=== PATIENT | female | born 1945 | race Caucasian/White ===

== ENCOUNTER → 2018-04-08 | Outpatient (CLI) | payer OTHER ==
[2018-04-08 14:20] LABS: BLOOD UREA NITROGEN 18 mg/dl (7-18); CALCIUM 8.6 mg/dl (8.5-10.1); CARBON DIOXIDE 25 mmol/L (21-32); CREATININE 0.68 mg/dl (0.60-1.20); GLUCOSE 96 mg/dl (70-99); POTASSIUM 3.9 mmol/L (3.5-5.1); SODIUM 143 mmol/L (136-145)
== END | disposition home or self-care (01) ==
LOC: C.LABMFLN 08:13
PROVIDERS: ATTEND Family Medicine
DX: E03.9 Hypothyroidism, unspecified (principal); M19.90 Unspecified osteoarthritis, unspecified site

== ENCOUNTER → 2018-05-10 | Outpatient (CLI) | payer OTHER | END | disposition home or self-care (01) | LOC: C.LABMFLN 09:11 | PROVIDERS: ATTEND Family Medicine | DX: E03.9 Hypothyroidism, unspecified (principal) ==

== ENCOUNTER 2019-03-07 16:04 | Inpatient (IN) ==
[2019-03-07 17:15] LABS: Partial Thromboplastin Time 26.6 Seconds (21.0-31.0); Prothrombin Time 10.5 Seconds (9.0-12.0)
[2019-03-07] MEDS ORDERED: OPTIRAY 320 125ml IV PRN (17:18)
--- NOTE | 2019-03-07 17:38 | CT Scan Report ---
CT ANGIOGRAPHY THE CHEST WITHOUT AND WITH CONTRAST CLINICAL HISTORY: Atypical chest pain, possible aortic dissection. COMPARISON STUDY: No previous studies for comparison. TECHNIQUE: Following the IV administration of 120 mL of Optiray-320, CT of the thorax was performed from the thoracic inlet to the lung bases. Images are reviewed in the axial, sagittal, and coronal pl anes. IV contrast was administered without complication. A dose lowering technique was utilized adhe ring to the principles of ALARA. MIP images were acquired. CT DOSE: 743.35 mGy.cm FINDINGS: Unenhanced images were initially obtained through the thorax. There is no evidence of acute aortic he matoma. Thyroid: Imaged portions of the thyroid gland are normal in appearance. Thoracic aorta: There is a left aortic arch with an aberrant right subclavian artery. There is no meng dence of thoracic aortic aneurysm. There is no evidence for thoracic aortic dissection. Pulmonary vasculature: The pulmonary trunk is normal in caliber. There are no central filling defects identified to suggest pulmonary embolus. Note that this examination was not protocoled for the evalu ation of pulmonary emboli. HEART: The heart is at the upper limits of normal in size. There is no significant pericardial effusi on. Lungs and pleural spaces: There is a 13 mm left lower lobe lung cyst. There is a partially solid and groundglass 6 mm left apical pulmonary nodule. There is no focal pulmonary consolidation. Mediastinum: There is no evidence for mediastinal lymphadenopathy. There is a small hiatal hernia. Ananya: There is no evidence of pathologic hilar lymphadenopathy. Axilla: There is no evidence of pathologic axillary lymphadenopathy. Upper abdomen: There is a 12 mm benign-appearing eggshell calcification located superior to the righ t kidney. Skeletal structures: There are no lytic or blastic osseous lesions. IMPRESSION: 1. No evidence of thoracic aortic aneurysm or dissection 2. No evidence of acute pulmonary embolism 3. 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 No evidence of focal pulmonary consolidation 5. 6 mm mixed solid and groundglass apical pulmonary nodule. A 3-6 month follow-up CT scan is recomme nded per Fleischner criteria Please refer to below summary of Fleischner criteria recommendations for follow-up of incidental CT n cory Higgins, Guidelines for management of small pulmonary nodules detected on CT scans: A sta tement from the Fleischner Society, Radiology 237: [id number].) SOLID NODULES Solitary nodule size: <6 mm * low risk patients: no follow-up needed * high risk patients: optional CT at 12 months Solitary nodule size: 6-8 mm * low risk patients: follow-up at 6-12 months, then consider further follow-up at 18-24 months * high risk patients: initial follow-up CT at 6-12 months and then at 18-24 months if no change Solitary nodule size: >8 mm * either low or high risk patients - consider follow-up CT at 3 months, and/or CT-PET, and/or biopsy Multiple nodules size: <6 mm * low risk patients: no routine follow-up * high risk patients: optional CT at 12 months Multiple nodules size: 6-8 mm * low risk patients: follow-up at 3-6 months, then consider further follow-up at 18-24 months * high risk patients: follow-up at 3-6 months, then at 18-24 months if no change Multiple nodules size: >8 mm * low risk patients: follow-up at 3-6 months, then consider further follow-up at 18-24 months * high risk patients: follow-up at 3-6 months, then at 18-24 months if no change Note: newly detected indeterminate nodule in persons 35 years of age or older. * low risk patients: minimal or absent history of smoking and/or other known risk factors * high risk patients: history of smoking or of other known risk factors (e.g. first degree relative with lung cancer, or exposure to asbestos, radon, uranium) * if a nodule up to 8 mm is partly solid or is ground glass further follow-up is required after 24 m onths to exclude possible slow growing adenocarcinoma (SAAD) SUBSOLID NODULES Solitary pure ground-glass nodule * nodule size <6 mm - no CT follow-up required * nodule size >=6 mm - follow-up CT at 6-12 months, then every 2 years until 5 years Solitary part-solid nodule * nodule size <6 mm - no CT follow-up required * nodule size >=6 mm - follow-up CT at 3-6 months. If unchanged, and solid component remains <6 mm, then annual follow-up for 5 years Multiple subsolid nodules * nodule size <6 mm - follow-up CT at 3-6 months, consider further follow-up at 2 and 4 years if sta ble * nodule size >=6 mm - follow-up CT at 3-6 months, subsequent management based on the most suspiciou s nodule(s) Electronically signed by: Casimiro Bernal M.D. 03/07/2019 5:35 PM
[2019-03-07] MEDS ORDERED: ASPIRIN CHEW 324 MG PO STA (17:54)
--- NOTE | 2019-03-07 18:19 | History & Physical Report ---
Date of Service March 07, 2019 Assessment & Plan (1) Exertional angina: - Admit to tele for observation for r/o - Trend cardiac biomarkers, initially was slightly elevated at 0.128 and then repeat was 0.117. Next draw at 2230. - EKG reviewed as above. - Check 2 D echo - If negative enzymes can consider a stress test tomorrow morning. - PT/OT consulted - Consult cardiology - Dr. De La O (2) PVC (premature ventricular contraction): -History of such, followed with cardiology, Dr. Martinez as an outpatient (3) HTN (hypertension): - Will treat transient htn with hydralazine for now with parameters. - pt reports not using outpt antihypertensives but was prescribed metoprolol succinate 25 mg to start this evening. She has not yet picked it up from the pharmacy. Give initial dose starting now. 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 (6) Lumbar disc disease: - stable (7) Left shoulder pain: - S/p Left shoulder surgery which was at the end of Oct 2018. - Currently going to PT/OT as outpatient (8) Arthritis: -Using etodolac 400 mg BID (9) H/O shoulder surgery: (10) DVT prophylaxis: - teds, heparin subq History of Present Illness Primary Care Provider: Srinivas Monroe DO This is a 73-year-old female with past medical history of HTN, HLD, factor V Leiden carrier, PVCs, hypothyroidism, arthritis and lumbar disc disease who presents with exertional angina over the past 2 weeks. Patient was in seeing her family physician for routine scheduled appointment. She was sent to the ER due to history of symptoms. She notes that upon walking only a few steps on incline she develops a substernal chest pain which radiates to her shoulder blades. At one point she thought that this was indigestion, used antacids however felt no relief. She denies any lightheadedness, headache, palpitation, flutter, or shortness of breath during the episodes. Pain is relieved by sitting still for several minutes periods, and bending over forward intensifies her pain. She does not routinely exercise. Troponin is mildly elevated upon initial presentation in the ER, second set was slightly lower. Will trend EKG appears without signs of ischemia or ST wave changes Allergies Allergy/AdvReac Type Severity Reaction Status Date / Time hydromorphone [From Dilaudid] Allergy Severe SWELLING Verified 03/07/19 19:02 OF FEET acetaminophen [From Percocet] Allergy Unknown Verified 03/07/19 19:02 amoxicillin [From Amoxil] Allergy Unknown Verified 03/07/19 19:02 oxycodone [From Percocet] Allergy Unknown Verified 03/07/19 19:02 Home Medications Home Medications Medication Instructions Recorded Confirmed Type cholecalciferol (vitamin D3) 1,000 1,000 units PO DAILY #90 tab 03/05/19 03/07/19 Rx unit tablet etodolac 400 mg tablet 400 mg PO BID #180 tab 03/05/19 03/07/19 Rx levothyroxine 75 mcg tablet 75 mcg PO DAILY #90 tab 03/05/19 03/07/19 Rx vitamin B complex tablet 1 tab PO DAILY #90 tab 03/05/19 03/07/19 Rx aspirin 81 mg PO QPM 03/07/19 03/07/19 History [id number] 1 cap PO HS 03/07/19 03/07/19 History [krill oil] metoprolol succinate ER 25 mg 25 mg PO DAILY #90 tab 03/07/19 03/07/19 Rx tablet,extended release 24 hr omeprazole 40 mg capsule,delayed 40 mg PO DAILY 03/07/19 03/07/19 History release Past Med/Surg History Medical History PVC (premature ventricular contraction) (Acute) Medicare annual wellness visit, initial (Acute) Lumbar disc disease (Acute) Left shoulder pain (Acute) Hypothyroidism (Acute) Factor V deficiency (Acute) Arthritis (Acute) Abnormal ECG (Acute) Surgical History H/O shoulder surgery Family History Son Myocardial infarction Hypertension Social History marital status: Current Living Situation: Spouse current occupational status: retired current occupation: [employer] Feels Safe at Home: Yes Smoking Status: Never smoker Hx Alcohol Use: No Review of Systems Review of Systems: Constitutional: No fever, sweats or chills Eyes: No diplopia, no worsening or blurred vision ENT: normal hearing, no trouble swallowing Respiratory: No cough, sputum, dyspnea at rest or on exertion Cardiovascular: As per HPI, no current chest pain, palpitations or flutter. Abdomen: No pain, nausea, vomiting, diarrhea or constipation Musculoskeletal: No joint pain, calf pain, swelling Neurologic: No weakness, numbness/tingling, or balance problems Psychiatric: No anxiety or depression Skin: No rash or itch Physical Exam Physical Exam: General: awake, alert, no apparent distress Head: Normocephalic, atraumatic ENT: PERRL, EOMI, no pharyngeal exudate, mucous membranes moist Chest: Nontender to palpation, clear to auscultation, on room air, no adventitious breath sounds Cardiac: Regular rate and rhythm, no murmur, no JVD, normal peripheral pulses, good capillary refill Abdominal: NABS x 4 quadrants, soft, nontender to palpation, no rebound, guarding or tenderness Extremities: Normal inspection, no peripheral edema or erythema, calfs nontender to palpation Psych: Normal mood and affect Neuro: AAO x 3, strength intact bilaterally and related 5/5, no motor deficits, speech is clear, no peripheral sensory deficits Skin: no rash or erythema Results & Data Vital Signs (Past 12 Hours) Vital Signs Temp Pulse Pulse Resp BP BP Pulse Ox 03/07/19 18:02 79 20 166/96 H 93 03/07/19 16:18 91 H 22 189/104 H 94 03/07/19 16:08 36.8 C 112 H 18 176/[address] ANGIOGRAPHY THE CHEST WITHOUT AND WITH CONTRAST CLINICAL HISTORY: Atypical chest pain, possible aortic dissection. COMPARISON STUDY: No previous studies for comparison. TECHNIQUE: Following the IV administration of 120 mL of Optiray-320, CT of the thorax was performed from the thoracic inlet to the lung bases. Images are reviewed in the axial, sagittal, and coronal planes. IV contrast was administered without complication. A dose lowering technique was utilized adhering to the principles of ALARA. MIP images were acquired. CT DOSE: 743.35 mGy.cm FINDINGS: Unenhanced images were initially obtained through the thorax. There is no evidence of acute aortic hematoma. Thyroid: Imaged portions of the thyroid gland are normal in appearance. Thoracic aorta: There is a left aortic arch with an aberrant right subclavian ar brandon. There is no evidence of thoracic aortic aneurysm. There is no evidence for thoracic aortic dissection. Pulmonary vasculature: The pulmonary trunk is normal in caliber. There are no central filling defects identified to suggest pulmonary embolus. Note that this examination was not protocoled for the evaluation of pulmonary emboli. HEART: The heart is at the upper limits of normal in size. There is no significant pericardial effusion. Lungs and pleural spaces: There is a 13 mm left lower lobe lung cyst. There is a partially solid and groundglass 6 mm left apical pulmonary nodule. There is no focal pulmonary consolidation. Mediastinum: There is no evidence for mediastinal lymphadenopathy. There is a small hiatal hernia. Ananya: There is no evidence of pathologic hilar lymphadenopathy. Axilla: There is no evidence of pathologic axillary lymphadenopathy. Upper abdomen: There is a 12 mm benign-appearing eggshell calcification located superior to the right kidney. Skeletal structures: There are no lytic or blastic osseous lesions. IMPRESSION: 1. No evidence of thoracic aortic aneurysm or dissection 2. No evidence of acute pulmonary embolism 3. 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 No evidence of focal pulmonary consolidation 5. 6 mm mixed solid and groundglass apical pulmonary nodule. A 3-6 month follow- up CT scan is recommended per Fleischner criteria Code Status & VTE Plan Code Status Full code-discussed with the patient's and family at bedside. Supervising Physician Co-Signing Physician Notes The patient was seen and examined by me and I agree with the assessment and plan done by Larisa Aleman PA-C. She has symptoms of exertional angina that radiate to the arms and resolves with rest. Troponin is minimally elevated. EKG reveals subtle ST segment depression in leads I and aVL. She will be started on metoprolol now and topical nitrates applied. She has had aspirin administered already. Cardiac echo is pending and cardiology consultation has been requested. She is a candidate for either stress testing prior to discharge or cardiac catheterization. Lungs are clear. Heart rhythm is regular with normal S1 and S2. Abdomen benign with normal bowel sounds. Extremities reveal no peripheral edema. Neurologically intact PG Care Time/CCT Total # of Minutes Spent Total Time Spent with Patient: Total time spent is greater than 50% in coordination of care (as documented) at patient's floor/unit and/or counseling patient:
[2019-03-07] MEDS ORDERED: ONDANSETRON INJ 2 MG/ML 2 ML VIAL IV PRN (18:20)
[2019-03-07] MEDS ORDERED: METOPROLOL TARTRATE 1 MG/ML VIAL IV STA (19:08)
[2019-03-07] MEDS: NITROGLYCERIN 2% OINTMENT 30GM TUBE EXT SCH (19:23)
[2019-03-07] MEDS ORDERED: METOPROLOL SUCC 25MG EXT REL TAB PO STA (20:43)
[2019-03-07] MEDS ORDERED: HydrALAZINE HCL 20 MG/ML VIAL IV PRN (20:43)
[2019-03-07] MEDS: HEPARIN SOD 5,000 UNIT/0.5 ML VIAL SQ SCH (21:24)
--- NOTE | 2019-03-07 22:41 | Emergency Department Note ---
Entered by Ananya Boss acting as a scribe for Ruperto Donis MD History of Present Illness General Chief complaint: Cardiac Assessment Stated complaint: ABNORMAL LABS- CARDIAC HX Time Seen by Provider: 03/07/19 16:19 Source: patient History of Present Illness Provider complaint: cardiac assessment Onset (ago): day(s) 2 Location: chest Pain Consistency: + other (episode) Maximum Pain Intensity: 4 Quality: + sharp and + other (heavy) Exacerbated By: + movement Associated symptoms: + denies other symptoms (abdomial pain) and + other (shoulder pain, back pain); no nausea/vomiting The patient is a 73 year old female who presents to the ED for a cardiac assessment. The patient states that her PCP recommended her to the ED due to elevated troponin levels. The patient states that she has been experiencing back pain, mid-shoulder pain, and episodes of heavy chest pain for 2 days. The patient notes that the pain feels sharp when she bends forward. The patient notes that the pain worsens upon exertion The patient denies nausea and abdominal pain. No shortness of breath or pleurisy. No fall or trauma. No blood or melena or stool. No focal numbness or weakness. Home Medications Home Medications Medication Instructions Recorded Confirmed Type cholecalciferol (vitamin D3) 1,000 1,000 units PO DAILY #90 tab 03/05/19 03/07/19 Rx unit tablet etodolac 400 mg tablet 400 mg PO BID #180 tab 03/05/19 03/07/19 Rx levothyroxine 75 mcg tablet 75 mcg PO DAILY #90 tab 03/05/19 03/07/19 Rx vitamin B complex tablet 1 tab PO DAILY #90 tab 03/05/19 03/07/19 Rx aspirin 81 mg PO QPM 03/07/19 03/07/19 History [id number]-ast 1 cap PO HS 03/07/19 03/07/19 History [krill oil] metoprolol succinate ER 25 mg 25 mg PO DAILY #90 tab 03/07/19 03/07/19 Rx tablet,extended release 24 hr omeprazole 40 mg capsule,delayed 40 mg PO DAILY 03/07/19 03/07/19 History release Allergies Allergy/AdvReac Type Severity Reaction Status Date / Time hydromorphone [From Dilaudid] Allergy Severe SWELLING Verified 03/07/19 19:02 OF FEET acetaminophen [From Percocet] Allergy Unknown Verified 03/07/19 19:02 amoxicillin [From Amoxil] Allergy Unknown Verified 03/07/19 19:02 oxycodone [From Percocet] Allergy Unknown Verified 03/07/19 19:02 Past Med/Surg History Medical History PVC (premature ventricular contraction) (Acute) Medicare annual wellness visit, initial (Acute) Lumbar disc disease (Acute) Left shoulder pain (Acute) Hypothyroidism (Acute) Factor V deficiency (Acute) Arthritis (Acute) Abnormal ECG (Acute) Surgical History H/O shoulder surgery Family History Son Myocardial infarction Hypertension Social History Preferred Language: Urdu Communication Ability: Effective Chopper Feeder Required: No Beliefs That Will Affect Care: None marital status: Current Living Situation: Spouse current occupational status: retired current occupation: CONSTRUCTION SUPERVISOR/[employer] Other Information That Helps Us Care for You: No Feels Safe at Home: Yes Safety Concerns: Feels Safe At This Time Smoking Status: Never smoker Do You Dip or Chew Tobacco: No Second Hand Exposure: No Hx Alcohol Use: No Hx Substance Use: No Review of Systems See HPI for pertinent positives & negatives. and A total of 10 systems reviewed and were otherwise negative Physical Exam Vital Signs Vital Signs - 24 hr 03/07/19 16:08 03/07/19 16:18 03/07/19 18:02 Temperature 36.8 C Temperature Source Oral Sepsis Recent Fever Within 48 Hours No Sepsis Action Taken by Nursing No Action Required Pulse Rate 112 H Pulse Rate [Apical] 91 H 79 Respiratory Rate 18 22 20 Respiratory Effort / Characteristics Non-Labored Respiratory Depth Normal Blood Pressure 176/112 H Blood Pressure [Right Arm] 189/104 H 166/96 H Blood Pressure Mean 133 Blood Pressure Mean [Right Arm] 132 119 Pulse Oximetry 97 94 93 Oxygen Delivery Method Room Air Room Air Room Air General: Non-ill appearing older female in no acute distress. HEENT: Normal cephalic atraumatic. Pupils are equal round and reactive to light. Extraocular movements are intact. Oropharynx is pink with moist mucous membranes. No swelling of the mouth lips or tongue. Neck: Supple with a midline trachea. No meningeal signs or stiffness, no JVD or bruits. No Stridor. Chest: Clear to auscultation bilaterally. No wheezes or rhonchi. No increased work of breathing. Heart: regular rate and rhythm. Abdomen: Soft nontender, nondistended without rebound guarding or rigidity. Extremities: No cyanosis clubbing or edema. No calf tenderness or asymmetry Spine/Back. Non tender to palpation. No CVA tenderness Skin: Good turgor without rashes. Neurologic exam: Cranial nerves two through 12 are intact. Motor and sensation are intact and symmetrical throughout. Course 1627: Past medical records reviewed. The patient was evaluated in room C4. A complete history and physical exam was performed. 1721: I reevaluated the patient at this time and they are doing okay. 1751: I discussed the test results with the patient at this time. 1834: I discussed the patient's case with Dr. Saleem [facility] Hospitalist. They will evaluate the patient for further management. Consultations Consultation #1: I discussed the patient's case with Dr. Saleem [facility] Hospitalist. They will evaluate the patient for further management. Time: 18:34 Administered Medications Heparin Sodium (Porcine) (Heparin Sodium (Porcine)) 5,000 units SQ Q8 [facility] Stop: 04/06/19 21:59 Last Admin: 03/07/19 21:24 Dose: Not Given Documented by: [id number] Ioversol (Optiray 320 125ml) 120 ml IV ONCE PRN PRN Reason: Interaction Checking Stop: 03/11/19 17:17 Last Admin: 03/07/19 17:19 Dose: 120 ml Documented by: [id number] Miscellaneous (Order Awaiting Action) 1 ea N/A QS [facility] Stop: 04/06/19 20:59 Last Admin: 03/07/19 21:19 Dose: Not Given Documented by: [id number] Nitroglycerin (Nitro-Bid 2%) 1 inch EXT Q6H [facility] Stop: 04/06/19 19:14 Last Admin: 03/07/19 19:23 Dose: 1 inch Documented by: [id number] Discontinued Medications Aspirin (Aspirin) 324 mg PO NOW STA Stop: 03/07/19 17:55 Last Admin: 03/07/19 18:02 Dose: 324 mg Documented by: [id number] Metoprolol Succinate (Toprol Xl) 25 mg PO NOW STA Stop: 03/07/19 20:44 Last Admin: 03/07/19 21:23 Dose: 25 mg Documented by: [id number] Metoprolol Tartrate (Lopressor) 5 mg IV NOW STA Stop: 03/07/19 19:09 Last Admin: 03/07/19 19:24 Dose: 5 mg Documented by: [id number] Medical Decision Making Differential Diagnosis Differentials include acute coronary syndrome, PE, aortic dissection, musculoskeletal, arrhythmia, metabolic and electrolyte abnormalities. Medical Records Attestation: I reviewed the patient's medical records. Home Medications Current Medication List: was personally reviewed by me Laboratory Data Attestation: I reviewed the patient's lab results. Lab Results 03/07/19 03/07/19 Range/Units 16:25 16:25 PT 10.5 (9.0-12.0) Seconds INR 1.0 (0.9-1.1) APTT 26.6 (21.0-31.0) Seconds PTT Ratio 1.0 Troponin I 0.117 H* (0-0.045) ng/ml Imaging Data Radiologist's Impression: Radiology results as stated below per my review and the radiologist's interpretation: CT ANGIOGRAPHY THE CHEST WITHOUT AND WITH CONTRAST CLINICAL HISTORY: Atypical chest pain, possible aortic dissection. COMPARISON STUDY: No previous studies for comparison. TECHNIQUE: Following the IV administration of 120 mL of Optiray-320, CT of the thorax was performed from the thoracic inlet to the lung bases. Images are reviewed in the axial, sagittal, and coronal planes. IV contrast was administered without complication. A dose lowering technique was utilized adhering to the principles of ALARA. MIP images were acquired. CT DOSE: 743.35 mGy.cm FINDINGS: Unenhanced images were initially obtained through the thorax. There is no evidence of acute aortic hematoma. Thyroid: Imaged portions of the thyroid gland are normal in appearance. Thoracic aorta: There is a left aortic arch with an aberrant right subclavian artery. There is no evidence of thoracic aortic aneurysm. There is no evidence for thoracic aortic dissection. Pulmonary vasculature: The pulmonary trunk is normal in caliber. There are no central filling defects identified to suggest pulmonary embolus. Note that this examination was not protocoled for the evaluation of pulmonary emboli. HEART: The heart is at the upper limits of normal in size. There is no significant pericardial effusion. Lungs and pleural spaces: There is a 13 mm left lower lobe lung cyst. There is a partially solid and groundglass 6 mm left apical pulmonary nodule. There is no focal pulmonary consolidation. Mediastinum: There is no evidence for mediastinal lymphadenopathy. There is a small hiatal hernia. Ananya: There is no evidence of pathologic hilar lymphadenopathy. Axilla: There is no evidence of pathologic axillary lymphadenopathy. Upper abdomen: There is a 12 mm benign-appearing eggshell calcification located superior to the right kidney. Skeletal structures: There are no lytic or blastic osseous lesions. IMPRESSION: 1. No evidence of thoracic aortic aneurysm or dissection 2. No evidence of acute pulmonary embolism 3. 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 No evidence of focal pulmonary consolidation 5. 6 mm mixed solid and groundglass apical pulmonary nodule. A 3-6 month follow- up CT scan is recommended per Fleischner criteria Please refer to below summary of Fleischner criteria recommendations for follow- up of incidental CT nodules (Sherrie Higgins, Guidelines for management of small pulmonary nodules detected on CT scans: A statement from the Fleischner Society, Radiology 237: [phone].) SOLID NODULES Solitary nodule size: <6 mm * low risk patients: no follow-up needed * high risk patients: optional CT at 12 months Solitary nodule size: 6-8 mm * low risk patients: follow-up at 6-12 months, then consider further follow-up at 18-24 months * high risk patients: initial follow-up CT at 6-12 months and then at 18-24 months if no change Solitary nodule size: >8 mm * either low or high risk patients - consider follow-up CT at 3 months, and/or CT-PET, and/or biopsy Multiple nodules size: <6 mm * low risk patients: no routine follow-up * high risk patients: optional CT at 12 months Multiple nodules size: 6-8 mm * low risk patients: follow-up at 3-6 months, then consider further follow-up at 18-24 months * high risk patients: follow-up at 3-6 months, then at 18-24 months if no change Multiple nodules size: >8 mm * low risk patients: follow-up at 3-6 months, then consider further follow-up at 18-24 months * high risk patients: follow-up at 3-6 months, then at 18-24 months if no change Note: newly detected indeterminate nodule in persons 35 years of age or older. * low risk patients: minimal or absent history of smoking and/or other known risk factors * high risk patients: history of smoking or of other known risk factors (e.g. first degree relative with lung cancer, or exposure to asbestos, radon, uranium) * if a nodule up to 8 mm is partly solid or is ground glass further follow-up is required after 24 months to exclude possible slow growing adenocarcinoma (SAAD) SUBSOLID NODULES Solitary pure ground-glass nodule * nodule size <6 mm - no CT follow-up required * nodule size >=6 mm - follow-up CT at 6-12 months, then every 2 years until 5 years Solitary part-solid nodule * nodule size <6 mm - no CT follow-up required * nodule size >=6 mm - follow-up CT at 3-6 months. If unchanged, and solid component remains <6 mm, then annual follow-up for 5 years Multiple subsolid nodules * nodule size <6 mm - follow-up CT at 3-6 months, consider further follow-up at 2 and 4 years if stable * nodule size >=6 mm - follow-up CT at 3-6 months, subsequent management based on the most suspicious nodule(s) Electronically signed by: Casimiro Bernal M.D. 03/07/2019 5:35 PM ECG Data Attestation: I personally reviewed and interpreted this ECG as follows: Indication: chest pain Rate (beats per minute): 91 Rhythm: normal sinus Findings: + nonspecific-ST abn, + RBBB (incomplete) and + left axis deviation Comparison ECG Date: from (June 21, 2010) Change: the following changes noted Blood Pressure Blood Pressure Findings: Elevated blood pressure Blood Pressure Disposition: further management by hospitalist [facility] Narrative This patient comes in as described above. She was placed in room C4. She has been having intermittent chest and back pain. It seems to be worse with exertion but also when she runs forward. She looks well on exam. She was seen by her doctor and was referred to the ER after she had an elevated troponin. At present she is asymptomatic. She has a normal neurologic exam. IV access was established and blood work was obtained. I reviewed the labs that were done earlier today. I repeated troponin and it was in the same range and not significantly elevated compared to before. I did do a chest CT and there is no evidence of aortic pathology such as dissection or aneurysm. There is no acute PE. She does have a history of factor V Leiden deficiency. She was given aspirin 324 mg chewable. I do think she needs to be admitted/observe for further treatment evaluation of her chest pain. Blood pressures also been on the high side as well. The patient and family are happy with the plan and she will be admitted. I am concerned with her exertional symptoms that she could have unstable angina and potentially have some coronary artery disease causing the symptoms. Impression & Plan Chest pain, Factor V deficiency, Back pain, Elevated troponin Discharge Plan Visit Data *Final* Discharge Date/Time: 03/07/19 18:53 Chief Complaint: Cardiac Assessment Stated Complaint: ABNORMAL LABS- CARDIAC HX ED Provider: Ruperto Donis Discharge Problem: Chest pain, Factor V deficiency, Back pain, Elevated troponin Patient Disposition: Admitted As Inpatient Discharge Instructions Interventions: ED Discharge Assessment Last Done: 03/07/19 18:53 The scribe's documentation has been prepared under my direction and personally reviewed by me in its entirety. I confirm that the note above accurately reflects all work, treatment, procedures, and medical decision making performed by me.
[2019-03-08] MEDS: NITROGLYCERIN 2% OINTMENT 30GM TUBE EXT SCH ×4 (02:21→19:48)
[2019-03-08] MEDS: HEPARIN SOD 5,000 UNIT/0.5 ML VIAL SQ SCH (06:08)
[2019-03-08 06:26] LABS: Hematocrit (blood only) 42.8 % (37-47); Hemoglobin 14.6 g/dL (12.0-16.0); Mean Corpuscular Hgb Conc 34.1 g/dL (32-36); Mean Corpuscular Volume 89.7 fL (80-100); Mean Platelet Volume 10.1 fL (7.4-10.4); Platelet Count 177 K/uL (130-400); RDW Standard Deviation 42.7 fL (36.4-46.3); Red Blood Count 4.77 M/uL (4.2-5.4); White Blood Count 4.42 K/uL (4.8-10.8)
[2019-03-08] MEDS ORDERED: LEVOTHYROXINE SODIUM 75 MCG TABLET PO SCH (06:30)
[2019-03-08 07:01] LABS: Albumin Level 3.5 gm/dl (3.4-5.0); BUN Creatinine Ratio 19.6 (10-20); Calcium 8.9 mg/dl (8.5-10.1); Creatinine Clr Calc Pharmacy 61.8 ml/min; Est GFR (African American) 86.7; Est GFR (Non-African American) 74.8; Potassium 3.9 mmol/L (3.5-5.1)
[2019-03-08 07:04] LABS: Albumin Globulin Ratio 0.9 (0.9-2); Bilirubin,Total 1.3 mg/dl (0.2-1); Total Protein 7.5 gm/dl (6.4-8.2)
[2019-03-08] MEDS: METOPROLOL SUCC 25MG EXT REL TAB PO SCH (08:04)
[2019-03-08] MEDS: CHOLECALCIFEROL 1,000 UNITS TAB PO SCH (08:04)
[2019-03-08] MEDS: ASPIRIN 81 MG ECTAB PO SCH (08:04)
[2019-03-08] MEDS: PANTOprazole 40 MG TAB PO SCH (08:04)
[2019-03-08] MEDS ORDERED: TICAGRELOR 90 MG TAB PO ONE (12:30)
--- NOTE | 2019-03-08 12:30 | Cardiology Consultation ---
Date of Consultation March 08, 2019 Assessment & Plan (1) Acute coronary syndrome: Presentation concerning for acute coronary syndrome. Crescendo angina, to the point where she had symptoms at rest this morning. Recommend heparin drip. Recommend dual anti-platelet therapy. Continue aspirin 81 mg daily. Start Brilinta. High-intensity statin therapy recommended. She is currently chest pain-free. No indication for urgent cardiac catheterization. Coronary angiography however is recommended and risks and benefits were discussed with her. She was made aware that CT surgery is not available at this facility. She is agreeable to undergo the procedure at this facility, and PCI, if deemed appropriate. Continue beta-xu and topical nitroglycerin. (2) Elevated troponin: Troponins are not diagnostic of myocardial infarction but are abnormal and with her presentation, symptoms are concerning for acute coronary syndrome/unstable angina as noted above. (3) Exertional angina: Unstable angina as noted above. Plan as above. (4) Dyslipidemia: LDL is elevated. High-intensity statin therapy initiated. (5) HTN (hypertension): Blood pressure initially elevated however has since normalized. Continue current regimen. (6) Disposition: Cardiology will continue to follow. Cardiac catheterization tentatively scheduled for Sunday. NPO after midnight. Dr. Zamora, primary hospitalist, notified and plan of care discussed with her. Highly complex medical issues. Thank you for allowing me to participate in the care of your patient. Please call for any other questions or concerns. Sincerely, Kushal Pruett M.D. History of Present Illness Reason for Consultation: Exertional angina with elevated troponin Requesting Physician: Faye Aleman Attending Physician: Jjuu Zamora MD History of Present Illness Mrs. Beth is a very pleasant 73-year-old female with a history of factor 5 deficiency who presented to [facility] with exertional chest discomfort concerning for angina. She went to see her PCP yesterday, Dr. Monroe, and complained of exertional substernal chest discomfort. She was placed on metoprolol succinate 25 mg daily and referred for hospitalization. For the past 2 weeks she has been experiencing substernal chest heaviness that will radiate to the intrascapular area and sometimes down bilateral arms. It has been taking less and less exertion over the past 2 weeks for the symptoms to occur and on 1 occasion prior to presentation, she had symptoms while sitting and simply bending over. There is no associated shortness of breath or diaphoresis. She admits that even walking in from the parking lot yesterday to see her PCP caused the symptoms. Symptoms typically occur with rest within 5 minutes but her longest episode lasted 10-15 minutes after walking at congregation recently. This morning while sitting in a chair, she had 2 episodes of left-sided chest discomfort lasting less than 5 minutes and the symptoms overall were less severe. She states that since then, her nitroglycerin paste was adjusted. She is currently chest pain-free. She denies syncope, near-syncope, palpitations, orthopnea, PND, shortness of breath, melena, hematochezia, hematuria, or fever. She had some edema while on a pain medication recently, but this has since resolved. She had an ECG done on presentation with lateral T-wave inversions which are new compared to September 2018 outpatient ECG. Her troponins were noted to be mildly elevated, but not diagnostic of myocardial infarction. While here, she had lipids done which were abnormal as well. Review of systems: As above. Review of systems otherwise negative/unremarkable. Social history: She denies tobacco, alcohol, drug abuse. She lives at home with her . She had 4 children but her oldest son at the age of 45 with MN. Her 2 daughters and son-in-law are present at the bedside along with her . Family history: Mother had MN in her 60s and at the age of 87. Son at 45 with MN. Father had mitral valve surgery. Allergies Allergy/AdvReac Type Severity Reaction Status Date / Time hydromorphone [From Dilaudid] Allergy Severe SWELLING Verified 03/07/19 19:02 OF FEET acetaminophen [From Percocet] Allergy Unknown Verified 03/07/19 19:02 amoxicillin [From Amoxil] Allergy Unknown Verified 03/07/19 19:02 oxycodone [From Percocet] Allergy Unknown Verified 03/07/19 19:02 Home Medications Home Medications Medication Instructions Recorded Confirmed Type cholecalciferol (vitamin D3) 1,000 1,000 units PO DAILY #90 tab 03/05/19 03/07/19 Rx unit tablet etodolac 400 mg tablet 400 mg PO BID #180 tab 03/05/19 03/07/19 Rx levothyroxine 75 mcg tablet 75 mcg PO DAILY #90 tab 03/05/19 03/07/19 Rx vitamin B complex tablet 1 tab PO DAILY #90 tab 03/05/19 03/07/19 Rx aspirin 81 mg PO QPM 03/07/19 03/07/19 History [id number] 1 cap PO HS 03/07/19 03/07/19 History [krill oil] metoprolol succinate ER 25 mg 25 mg PO DAILY #90 tab 03/07/19 03/07/19 Rx tablet,extended release 24 hr omeprazole 40 mg capsule,delayed 40 mg PO DAILY 03/07/19 03/07/19 History release Patient History Medical History PVC (premature ventricular contraction) (Acute) Medicare annual wellness visit, initial (Acute) Lumbar disc disease (Acute) Left shoulder pain (Acute) Hypothyroidism (Acute) Factor V deficiency (Acute) Arthritis (Acute) Abnormal ECG (Acute) Surgical History H/O shoulder surgery Family History Son Myocardial infarction Hypertension Social History Preferred Language: Lithuanian Communication Ability: Effective Accelerator Technician Required: No Beliefs That Will Affect Care: None marital status: Current Living Situation: Spouse current occupational status: retired current occupation: [employer] Other Information That Helps Us Care for You: No Feels Safe at Home: Yes Safety Concerns: Feels Safe At This Time Smoking Status: Never smoker Do You Dip or Chew Tobacco: No Second Hand Exposure: No Hx Alcohol Use: No Hx Substance Use: No Physical Exam Physical Exam: Gen.: No acute distress. Alert and oriented. HEENT: Anicteric sclera. Neck: No JVD. No bruits. Normal carotid upstrokes bilaterally. Cardiac: PMI was nonpalpable. No ventricular heave. Regular. Normal S1-S2. No murmurs, rubs, or gallops. Pulmonary: Initially, bibasilar crackles which resolved with cough. Otherwise, clear to auscultation bilaterally without wheezes, rales, or rhonchi. Abdomen: Soft, nontender, nondistended, with normoactive bowel sounds. No bruits noted. Extremities: 2+ radial pulses bilaterally, Maulik's test okay. 2+ posterior tibialis pulses bilaterally. No edema or cyanosis. No palpable cords. Psychiatric: Affect appears appropriate. Results & Data Vital Signs (Past 12 Hours) Vital Signs Temp Pulse Pulse Resp BP Pulse Ox 03/08/19 11:47 36.4 C L 75 17 133/81 92 03/08/19 07:03 36.6 C 85 20 106/71 91 03/08/19 04:18 36.6 C 89 18 101/61 93 Laboratory Results Laboratory Results - last 24 hr 03/07/19 03/07/19 03/07/19 16:25 16:25 22:21 WBC RBC Hgb Hct MCV MCH MCHC RDW Std Deviation RDW Coeff of Joanie Plt Count MPV PT 10.5 INR 1.0 APTT 26.6 PTT Ratio 1.0 Sodium Potassium Chloride Carbon Dioxide Anion Gap BUN Creatinine Est Cr Clr Drug Dosing Est GFR ( Amer) Est GFR (Non-Af Amer) BUN/Creatinine Ratio Glucose Calcium Total Bilirubin AST ALT Alkaline Phosphatase Troponin I 0.117 H* 0.117 H* Total Protein Albumin Globulin Albumin/Globulin Ratio 03/08/19 03/08/19 03/08/19 06:12 06:12 06:12 WBC 4.42 L RBC 4.77 Hgb 14.6 Hct 42.8 MCV 89.7 MCH 30.6 MCHC 34.1 RDW Std Deviation 42.7 RDW Coeff of Joanie 13.0 Plt Count 177 MPV 10.1 PT INR APTT PTT Ratio Sodium 141 Potassium 3.9 Chloride 108 H Carbon Dioxide 24 Anion Gap 9.0 BUN 16 Creatinine 0.79 Est Cr Clr Drug Dosing 61.8 Est GFR ( Amer) 86.7 Est GFR (Non-Af Amer) 74.8 BUN/Creatinine Ratio 19.6 Glucose 86 Calcium 8.9 Total Bilirubin 1.3 H AST 17 ALT 25 Alkaline Phosphatase 93 Troponin I 0.112 H* Total Protein 7.5 Albumin 3.5 Globulin 4.0 Albumin/Globulin Ratio 0.9 Diagnostic Findings CTA chest 03/07/2019: No evidence of thoracic aortic aneurysm or dissection. No PE. It no consolidation. Telemetry personally reviewed: No arrhythmia. Sinus rhythm. ECG 03/08/2019 at 9:06 a.m.: Sinus rhythm with PVCs. Lateral T-wave inversion. T-wave inversion more prominent compared to 03/07/2019 ECG. ECG 03/07/2019 at 4:15 p.m.: Sinus rhythm [address]/T-wave abnormality. Echo 03/08/2019: Normal LV size, wall motion, systolic function. EF 55-60%. Moderate LVH. No significant valvular abnormalities. Medications Administered Current Inpatient Medications Aspirin (Ecotrin Ectab) 81 mg PO DAILY [facility] Stop: 04/07/19 08:59 Last Admin: 03/08/19 08:04 Dose: 81 mg Documented by: Atorvastatin Calcium (Lipitor) 80 mg PO HS [facility] Stop: 04/07/19 20:59 Heparin Sodium/Dextrose () 1 ea IV Q30M [facility]; Protocol Stop: 03/08/19 14:19 Hydralazine HCl (Hydralazine Hcl) 10 mg IV Q2H PRN PRN Reason: htn Stop: 04/06/19 20:42 Ioversol (Optiray 320 125ml) 120 ml IV ONCE PRN PRN Reason: Interaction Checking Stop: 03/11/19 17:17 Last Admin: 03/07/19 17:19 Dose: 120 ml Documented by: Levothyroxine Sodium (Synthroid) 75 mcg PO DAILYBB [facility] Stop: 04/07/19 06:29 Last Admin: 03/08/19 06:08 Dose: 75 mcg Documented by: Metoprolol Succinate (Toprol Xl) 25 mg PO DAILY [facility] Stop: 04/07/19 08:59 Last Admin: 03/08/19 08:04 Dose: 25 mg Documented by: Miscellaneous (Order Awaiting Action) 1 ea N/A QS [facility] Stop: 04/06/19 20:59 Last Admin: 03/08/19 08:05 Dose: 1 ea Documented by: Nitroglycerin (Nitro-Bid 2%) 1 inch EXT Q6H [facility] Stop: 04/06/19 19:14 Last Admin: 03/08/19 08:08 Dose: 1 inch Documented by: Ondansetron HCl (Zofran) 4 mg IV Q4H PRN PRN Reason: Nausea And Vomiting Stop: 04/06/19 18:19 Pantoprazole Sodium (Protonix) 40 mg PO DAILY [facility] Stop: 04/07/19 08:59 Last Admin: 03/08/19 08:04 Dose: 40 mg Documented by: Ticagrelor (Brilinta) 180 mg PO 1230 ONE Stop: 03/08/19 12:31 Ticagrelor (Brilinta) 90 mg PO BID [facility] Stop: 04/07/19 20:59 Vitamin D (Vitamin D3) 1,000 units PO DAILY [facility] Stop: 04/07/19 08:59 Last Admin: 03/08/19 08:04 Dose: 1,000 units Documented by:
[2019-03-08 12:50] LABS: Partial Thromboplastin Time 26.7 Seconds (21.0-31.0)
[2019-03-08] MEDS ORDERED: HEPARIN IV BOLUS 5,000 UNITS in SYRINGE 0 ML IV ONE (13:00)
[2019-03-08] MEDS: Heparin Adult STANDARD Wt-Based Dextrose 5% 25,000 units/500 mL IV SCH (13:50)
--- NOTE | 2019-03-08 15:13 | Hospitalist Progress Note ---
Date of Service March 08, 2019 Assessment & Plan (1) NSTEMI (non-ST elevated myocardial infarction): This patient is a 73-year-old female with a history of HTN, hyperlipidemia, hypothyroidism, factor V Leiden deficiency, lumbar DDD, OA, and PVCs, who presented with unstable angina and was found to have acute coronary syndrome/NSTEMI. She was having angina with exertion is relieved with rest which is new in onset for the last 2 weeks prior to admission. ECG here with ST depression in the lateral leads and on repeat ECG with more pronounced T wave inversion in the lateral leads Troponins mildly elevated and remaining elevated at 0.128/0 0.117/0 0.117/0.112 Echocardiogram with normal EF and no wall motion abnormalities, no valvular disease LDL quite elevated at 166 Appreciate cardiology consultation -Continue telemetry monitoring -Started heparin drip today -Loaded with Brilinta and then will continue Brilinta 90 mg p.o. twice daily -Continue aspirin 81 mg daily -Continue Toprol-XL 25 mg once daily -Continue Nitropaste -Increase atorvastatin to high intensity 80 mg daily -Would permanently discontinue NSAIDs such as etodolac -Plan for cardiac catheterization on Sunday or sooner if becomes urgent with return of chest pain at rest or that is persistent (2) HTN (hypertension): -Blood pressures better controlled today since starting metoprolol yesterday - pt reports not using outpt antihypertensives but was prescribed metoprolol robertson ccinate 25 mg at her PCPs office on the day of admission but she had not yet picked it up at the pharmacy -Continue metoprolol succinate 25 mg once daily -Continue to follow blood pressures (3) Hypothyroidism: TSH here is quite elevated at 8.27 and was normal 6 months ago -Increase levothyroxine to 88 mcg daily -Check TSH in 4 to 6 weeks (4) Factor V deficiency: -History of such due to family genetic testing -Patient has no history of clotting disorders, DVT or PE. She only had the genetic test done because she had 2 granddaughters with recurrent miscarriages that were found to be positive for factor V Leiden deficiency (5) Left shoulder pain: - S/p Left shoulder surgery which was at the end of Oct 2018. - Currently going to PT/OT as outpatient -Discontinue NSAIDs (6) Arthritis: -Using etodolac 400 mg BID at home-would permanently discontinue given she will need dual antiplatelet therapy most likely and to reduce risk of RI and stroke that NSAIDs carry (7) Dyslipidemia: LDL very elevated at 166 Was on Krill oil only at home -Started atorvastatin 80 mg daily -Follow LFTs and lipid panel in 6 to 8 weeks as an outpatient (8) PVC (premature ventricular contraction): -History of such, followed with cardiology, Dr. Martinez as an outpatient -None so far here on telemetry monitoring -Started on metoprolol (9) Lumbar disc disease: - stable (10) DVT prophylaxis: - teds, heparin drip Disposition-remain on PCU, telemetry, awaiting cardiac catheterization on Sunday Subjective Patient had a brief episode of chest pain this morning with exerting herself getting out of bed to the chair which resolved with rest. Otherwise, no further chest pain since that time. Denies shortness of breath, no leg swelling, no abdominal pain or nausea. Telemetry with normal sinus rhythm with rates in the 70s to 80s. I discussed the case with the numerical control machine operator. Review of Systems Review of Systems: All systems reviewed & are unremarkable except as noted in HPI & below (No constipation, no urinary symptoms) Physical Exam Constitutional: WD/WN, vitals as above Eyes: PERRL, conjunctivae normal, anicteric sclerae ENMT: external ear and nose normal, oropharynx normal Neck: trachea midline, no thyromegaly Respiratory: normal respiratory effort, lungs clear to auscultation Cardiovascular: RRR, no murmur, no edema Gastrointestinal (Abdomen): normal bowel sounds, soft, nontender, no hepatosplenomegaly Musculoskeletal: Extremities: extremities normal to inspection; no cyanosis and no clubbing Skin: no rashes, warm and dry Neurologic: moves all extremities and awake; no focal motor deficits Psychiatric: A+Ox3, euthymic affect Results & Data Vital Signs (Past 12 Hours) Vital Signs Temp Pulse Pulse Resp BP Pulse Ox 03/08/19 11:47 36.4 C L 75 17 133/81 92 03/08/19 07:03 36.6 C 85 20 106/71 91 03/08/19 04:18 36.6 C 89 18 101/61 93 Laboratory Results 03/08/19 03/08/19 03/08/19 Range/Units 12:18 06:12 06:12 WBC (4.8-10.8) K/uL RBC (4.2-5.4) M/uL Hgb (12.0-16.0) g/dL Hct (37-47) % MCV (80-100) fL MCH (25-34) pg MCHC (32-36) g/dL RDW Std Deviation (36.4-46.3) fL RDW Coeff of Joanie (11.5-14.5) % Plt Count (130-400) K/uL MPV (7.4-10.4) fL PT (9.0-12.0) Seconds INR (0.9-1.1) APTT 26.7 (21.0-31.0) Seconds PTT Ratio 1.0 Sodium 141 (136-145) mmol/L Potassium 3.9 (3.5-5.1) mmol/L Chloride 108 H (98-107) mmol/L Carbon Dioxide 24 (21-32) mmol/L Anion Gap 9.0 (3-11) BUN 16 (7-18) mg/dl Creatinine 0.79 (0.6-1.2) mg/dl Est Cr Clr Drug Dosing 61.8 ml/min Est GFR ( Amer) 86.7 Est GFR (Non-Af Amer) 74.8 BUN/Creatinine Ratio 19.6 (10-20) Glucose 86 (70-99) mg/dl Calcium 8.9 (8.5-10.1) mg/dl Total Bilirubin 1.3 H (0.2-1) mg/dl AST 17 (15-37) U/L ALT 25 (12-78) U/L Alkaline Phosphatase 93 (45-117) U/L Troponin I 0.112 H* (0-0.045) ng/ml Total Protein 7.5 (6.4-8.2) gm/dl Albumin 3.5 (3.4-5.0) gm/dl Globulin 4.0 (2.5-4.0) gm/dl Albumin/Globulin Ratio 0.9 (0.9-2) 03/08/19 03/07/19 03/07/19 Range/Units 06:12 22:21 16:25 WBC 4.42 L (4.8-10.8) K/uL RBC 4.77 (4.2-5.4) M/uL Hgb 14.6 (12.0-16.0) g/dL Hct 42.8 (37-47) % MCV 89.7 (80-100) fL MCH 30.6 (25-34) pg MCHC 34.1 (32-36) g/dL RDW Std Deviation 42.7 (36.4-46.3) fL RDW Coeff of Joanie 13.0 (11.5-14.5) % Plt Count 177 (130-400) K/uL MPV 10.1 (7.4-10.4) fL PT (9.0-12.0) Seconds INR (0.9-1.1) APTT (21.0-31.0) Seconds PTT Ratio Sodium (136-145) mmol/L Potassium (3.5-5.1) mmol/L Chloride (98-107) mmol/L Carbon Dioxide (21-32) mmol/L Anion Gap (3-11) BUN (7-18) mg/dl Creatinine (0.6-1.2) mg/dl Est Cr Clr Drug Dosing ml/min Est GFR ( Amer) Est GFR (Non-Af Amer) BUN/Creatinine Ratio (10-20) Glucose (70-99) mg/dl Calcium (8.5-10.1) mg/dl Total Bilirubin (0.2-1) mg/dl AST (15-37) U/L ALT (12-78) U/L Alkaline Phosphatase (45-117) U/L Troponin I 0.117 H* 0.117 H* (0-0.045) ng/ml Total Protein (6.4-8.2) gm/dl Albumin (3.4-5.0) gm/dl Globulin (2.5-4.0) gm/dl Albumin/Globulin Ratio (0.9-2) / Range/Units 16:25 WBC (4.8-10.8) K/uL RBC (4.2-5.4) M/uL Hgb (12.0-16.0) g/dL Hct (37-47) % MCV (80-100) fL MCH (25-34) pg MCHC (32-36) g/dL RDW Std Deviation (36.4-46.3) fL RDW Coeff of Joanie (11.5-14.5) % Plt Count (130-400) K/uL MPV (7.4-10.4) fL PT 10.5 (9.0-12.0) Seconds INR 1.0 (0.9-1.1) APTT 26.6 (21.0-31.0) Seconds PTT Ratio 1.0 Sodium (136-145) mmol/L Potassium (3.5-5.1) mmol/L Chloride (98-107) mmol/L Carbon Dioxide (21-32) mmol/L Anion Gap (3-11) BUN (7-18) mg/dl Creatinine (0.6-1.2) mg/dl Est Cr Clr Drug Dosing ml/min Est GFR ( Amer) Est GFR (Non-Af Amer) BUN/Creatinine Ratio (10-20) Glucose (70-99) mg/dl Calcium (8.5-10.1) mg/dl Total Bilirubin (0.2-1) mg/dl AST (15-37) U/L ALT (12-78) U/L Alkaline Phosphatase (45-117) U/L Troponin I (0-0.045) ng/ml Total Protein (6.4-8.2) gm/dl Albumin (3.4-5.0) gm/dl Globulin (2.5-4.0) gm/dl Albumin/Globulin Ratio (0.9-2) Diagnostic Findings Echocardiogram with normal EF, no wall motion abnormalities PG Care Time/CCT Total # of Minutes Spent Total Time Spent with Patient: Total time spent is greater than 50% in coordination of care (as documented) at patient's floor/unit and/or counseling patient:
[2019-03-08] MEDS ORDERED: HydrALAZINE HCL 20 MG/ML VIAL IV PRN (17:01)
[2019-03-08] MEDS: TICAGRELOR 90 MG TAB PO SCH (19:49)
[2019-03-08] MEDS: ATORVASTATIN 40 MG TAB PO SCH (19:50)
[2019-03-08 19:52] LABS: Partial Thromboplastin Ratio 3.1
[2019-03-08 19:59] LABS: Partial Thromboplastin Time 83.6 Seconds (21.0-31.0)
[2019-03-09] MEDS: NITROGLYCERIN 2% OINTMENT 30GM TUBE EXT SCH ×4 (02:19→19:28)
[2019-03-09 02:52] LABS: Hematocrit (blood only) 38.3 % (37-47); Hemoglobin 12.9 g/dL (12.0-16.0); Mean Corpuscular Hgb Conc 33.7 g/dL (32-36); Mean Corpuscular Volume 90.8 fL (80-100); Mean Platelet Volume 10.1 fL (7.4-10.4); Platelet Count 160 K/uL (130-400); RDW Standard Deviation 43.1 fL (36.4-46.3); Red Blood Count 4.22 M/uL (4.2-5.4); White Blood Count 4.98 K/uL (4.8-10.8)
[2019-03-09 03:08] LABS: BUN Creatinine Ratio 23.5 (10-20); Calcium 8.1 mg/dl (8.5-10.1); Creatinine Clr Calc Pharmacy 56.8 ml/min; Est GFR (African American) 78.2; Est GFR (Non-African American) 67.5; Magnesium 2.2 mg/dl (1.8-2.4); Potassium 3.5 mmol/L (3.5-5.1)
[2019-03-09 03:15] LABS: Partial Thromboplastin Ratio 2.3
[2019-03-09 03:19] LABS: Partial Thromboplastin Time 62.1 Seconds (21.0-31.0)
[2019-03-09] MEDS: LEVOTHYROXINE SODIUM 88 MCG TABLET PO SCH (06:28)
[2019-03-09] MEDS: TICAGRELOR 90 MG TAB PO SCH ×2 (08:11→19:34)
[2019-03-09] MEDS: ASPIRIN 81 MG ECTAB PO SCH (08:12)
[2019-03-09] MEDS: CHOLECALCIFEROL 1,000 UNITS TAB PO SCH (08:12)
[2019-03-09] MEDS: METOPROLOL SUCC 25MG EXT REL TAB PO SCH (08:12)
[2019-03-09] MEDS: PANTOprazole 40 MG TAB PO SCH (08:12)
--- NOTE | 2019-03-09 10:05 | Hospitalist Progress Note ---
Date of Service March 09, 2019 Assessment & Plan (1) NSTEMI (non-ST elevated myocardial infarction): This patient is a 73-year-old female with a history of HTN, hyperlipidemia, hypothyroidism, factor V Leiden deficiency, lumbar DDD, OA, and PVCs, who presented with unstable angina and was found to have acute coronary syndrome/NSTEMI. She was having angina with exertion is relieved with rest which is new in onset for the last 2 weeks prior to admission. ECG here with ST depression in the lateral leads and on repeat ECG with more pronounced T wave inversion in the lateral leads Troponins mildly elevated and remained elevated serially at 0.128/0 0.117/0 0.117/0.112 Echocardiogram with normal EF and no wall motion abnormalities, no valvular disease LDL quite elevated at 166 Appreciate cardiology consultation COntinues with angina with minimal exertion today -Continue telemetry monitoring -continue heparin drip -Loaded with Brilinta on 03/08 and continue Brilinta 90 mg p.o. twice daily -Continue aspirin 81 mg daily -Continue Toprol-XL 25 mg once daily -Continue Nitropaste -Increase atorvastatin to high intensity 80 mg daily -Would permanently discontinue NSAIDs such as etodolac from home -Plan for cardiac catheterization on Sunday or sooner if becomes urgent with return of chest pain at rest or that is persistent -NPO after midnight (2) HTN (hypertension): -Blood pressures better controlled since starting metoprolol upon admiss ion - pt reports not using outpt antihypertensives but was prescribed metoprolol succinate 25 mg at her PCPs office on the day of admission but she had not yet picked it up at the pharmacy -Continue metoprolol succinate 25 mg once daily -Continue to follow blood pressures (3) Hypothyroidism: TSH here is quite elevated at 8.27 and was normal 6 months ago -Increased levothyroxine to 88 mcg daily -Check TSH in 4 to 6 weeks (4) Factor V deficiency: -History of such due to family genetic testing -Patient has no history of clotting disorders, DVT or PE. She only had the genetic test done because she had 2 granddaughters with recurrent miscarriages that were found to be positive for factor V Leiden deficiency (5) Left shoulder pain: - S/p Left shoulder surgery which was at the end of Oct 2018. - Currently going to PT/OT as outpatient -Discontinued NSAIDs (6) Arthritis: -Using etodolac 400 mg BID at home-would permanently discontinue given she will need dual antiplatelet therapy most likely and to reduce risk of RI and stroke that NSAIDs carry (7) Dyslipidemia: LDL very elevated at 166 Was on Krill oil only at home -Started atorvastatin 80 mg daily -Follow LFTs and lipid panel in 6 to 8 weeks as an outpatient (8) PVC (premature ventricular contraction): -History of such, followed with cardiology, Dr. Martinez as an outpatient -only a few so far here on telemetry monitoring -Started on metoprolol (9) Lumbar disc disease: - stable (10) DVT prophylaxis: - teds, heparin drip Disposition-remain on PCU, telemetry, awaiting cardiac catheterization on Sunday Subjective Pt had chest pressure and SOB with getting up to wash herself at the sink this AM. It went away after a few minutes of rest. No nausea or lightheadedness, no abd pain. Tele with NSR, 1st degree AV block at times, rates in the 80s Review of Systems Review of Systems: All systems reviewed & are unremarkable except as noted in HPI & below Physical Exam Constitutional: WD/WN, vitals as above Eyes: PERRL, conjunctivae normal, anicteric sclerae Neck: trachea midline, no thyromegaly Respiratory: normal respiratory effort, lungs clear to auscultation Cardiovascular: RRR, no murmur, no edema Gastrointestinal (Abdomen): normal bowel sounds, soft, nontender, no hepatosplenomegaly Musculoskeletal: Extremities: extremities normal to inspection; no cyanosis and no clubbing Skin: no rashes, warm and dry Neurologic: moves all extremities and awake; no focal motor deficits Psychiatric: A+Ox3, euthymic affect Results & Data Vital Signs (Past 12 Hours) Vital Signs Temp Pulse Pulse Resp BP Pulse Ox 03/09/19 07:40 95 H 03/09/19 07:11 36.6 C 77 20 121/77 94 03/09/19 04:10 36.6 C 80 17 119/72 93 03/08/19 23:59 36.5 C 79 18 131/73 95 Laboratory Results 03/09/19 03/09/19 03/09/19 Range/Units 02:39 02:39 02:39 WBC 4.98 (4.8-10.8) K/uL RBC 4.22 (4.2-5.4) M/uL Hgb 12.9 (12.0-16.0) g/dL Hct 38.3 (37-47) % MCV 90.8 (80-100) fL MCH 30.6 (25-34) pg MCHC 33.7 (32-36) g/dL RDW Std Deviation 43.1 (36.4-46.3) fL RDW Coeff of Joanie 13.0 (11.5-14.5) % Plt Count 160 (130-400) K/uL MPV 10.1 (7.4-10.4) fL APTT 62.1 H* (21.0-31.0) Seconds PTT Ratio 2.3 Sodium 138 (136-145) mmol/L Potassium 3.5 (3.5-5.1) mmol/L Chloride 108 H (98-107) mmol/L Carbon Dioxide 24 (21-32) mmol/L Anion Gap 6.0 (3-11) BUN 20 H (7-18) mg/dl Creatinine 0.86 (0.6-1.2) mg/dl Est Cr Clr Drug Dosing 56.8 ml/min Est GFR ( Amer) 78.2 Est GFR (Non-Af Amer) 67.5 BUN/Creatinine Ratio 23.5 H (10-20) Glucose 120 H (70-99) mg/dl Calcium 8.1 L (8.5-10.1) mg/dl Magnesium 2.2 (1.8-2.4) mg/dl 03/08/19 03/08/19 Range/Units 19:26 12:18 WBC (4.8-10.8) K/uL RBC (4.2-5.4) M/uL Hgb (12.0-16.0) g/dL Hct (37-47) % MCV (80-100) fL MCH (25-34) pg MCHC (32-36) g/dL RDW Std Deviation (36.4-46.3) fL RDW Coeff of Joanie (11.5-14.5) % Plt Count (130-400) K/uL MPV (7.4-10.4) fL APTT 83.6 H* 26.7 (21.0-31.0) Seconds PTT Ratio 3.1 1.0 Sodium (136-145) mmol/L Potassium (3.5-5.1) mmol/L Chloride (98-107) mmol/L Carbon Dioxide (21-32) mmol/L Anion Gap (3-11) BUN (7-18) mg/dl Creatinine (0.6-1.2) mg/dl Est Cr Clr Drug Dosing ml/min Est GFR ( Amer) Est GFR (Non-Af Amer) BUN/Creatinine Ratio (10-20) Glucose (70-99) mg/dl Calcium (8.5-10.1) mg/dl Magnesium (1.8-2.4) mg/dl PG Care Time/CCT Total # of Minutes Spent Total Time Spent with Patient: Total time spent is greater than 50% in coordinat ion of care (as documented) at patient's floor/unit and/or counseling patient:
[2019-03-09] MEDS ORDERED: POTASSIUM CHLORIDE 20 MEQ TABCR PO ONE (10:45)
[2019-03-09] MEDS: Heparin Adult STANDARD Wt-Based Dextrose 5% 25,000 units/500 mL IV SCH (12:26)
[2019-03-09] MEDS: ATORVASTATIN 40 MG TAB PO SCH (19:33)
[2019-03-09] MEDS: DOCUSATE SODIUM 100 MG CAP PO SCH (22:00)
[2019-03-10] MEDS: NITROGLYCERIN 2% OINTMENT 30GM TUBE EXT SCH ×2 (01:39→08:36)
[2019-03-10] MEDS: LEVOTHYROXINE SODIUM 88 MCG TABLET PO SCH (06:07)
[2019-03-10 06:48] LABS: Hematocrit (blood only) 38.9 % (37-47); Hemoglobin 13.2 g/dL (12.0-16.0); Mean Corpuscular Hgb Conc 33.9 g/dL (32-36); Mean Corpuscular Volume 91.1 fL (80-100); Mean Platelet Volume 10.5 fL (7.4-10.4); Platelet Count 160 K/uL (130-400); RDW Coefficient of Variation 13.1 % (11.5-14.5); RDW Standard Deviation 43.5 fL (36.4-46.3); Red Blood Count 4.27 M/uL (4.2-5.4); White Blood Count 4.47 K/uL (4.8-10.8)
--- NOTE | 2019-03-10 06:53 | Pre Anesthesia Assessment ---
Date of Service March 10, 2019 Pre Sedation Assessment Vital Signs Temp Pulse Pulse Resp BP Pulse Ox 03/10/19 04:19 36.6 C 72 18 136/75 94 03/10/19 00:12 36.4 C L 80 19 136/78 92 03/09/19 19:10 36.6 C 83 18 129/83 95 03/09/19 15:40 36.8 C 72 18 136/83 93 03/09/19 14:50 86 03/09/19 11:56 36.9 C 85 18 122/88 92 03/09/19 07:40 95 H 03/09/19 07:11 36.6 C 77 20 121/77 94 Cardiovascular RRR, no murmur, no edema Respiratory normal respiratory effort, lungs clear to auscultation Pre-Sedation Airway Assessment Smoking Status: Never smoker Mallampati Class: III ASA: ASA3 NPO Status Date of Last Intake of Fluids: 03/09/19 Time of Last Intake of Fluids: 18:00 Date of Last Intake of Solid Food: 03/09/19 Time of Last Intake of Solid Foods: 18:00 Procedure Planning Contraindications for Sedation: none Current Medications Reviewed: Yes Notes The planned sedation has been discussed with the patient. Informed Consent was obtained. I have identified the patient, determined the appropriateness of sedation and have assessed the patient immediately prior to the procedure. All medicine(s) and interventions are by my order.
[2019-03-10] MEDS ORDERED: fentaNYL citrate 100 MCG/2 ML VIAL ONE (06:56)
[2019-03-10] MEDS ORDERED: NiCARDipine HCL INJ 2.5 MG/ML 10 ML AMP ONE (06:56)
[2019-03-10] MEDS ORDERED: HEPARIN (PORCINE) 1000 UNIT/ML 10 ML (CATH LAB USE ONLY) ONE (06:56)
[2019-03-10] MEDS ORDERED: MIDAZOLAM HCL 1 MG/ML 2ML VIAL ONE ×2 (06:56→07:32)
[2019-03-10] MEDS ORDERED: NITROGLYCERIN/D5W 100MCG/ML 20ML SYR ONE (06:57)
[2019-03-10 07:05] LABS: Calcium 8.4 mg/dl (8.5-10.1); Creatinine Clr Calc Pharmacy 59.3 ml/min; Est GFR (African American) 81.7; Est GFR (Non-African American) 70.4; Magnesium 2.3 mg/dl (1.8-2.4)
--- NOTE | 2019-03-10 07:05 | Cardiology Progress Note ---
Date of Service March 10, 2019 Assessment & Plan (1) Acute coronary syndrome: She presented with acute coronary syndrome and has been found to have multivessel CAD including proximal LAD. Recommend CT surgery evaluation for bypass consideration. Continue aspirin 81 mg daily. Continue heparin drip as she continues to have anginal symptoms with minimal exertion in the room and did have some rest pain earlier this weekend. Stop Brilinta (last dose was 03/09/2019). Continue high-intensity statin therapy, beta-xu, and nitroglycerin paste. She is currently angina free and tolerated cardiac catheterization well. (2) CAD (coronary artery disease), [place] coronary artery: Multivessel CAD as noted above. Recommend CT surgery consultation for consideration of bypass surgery. Continue medical therapy as above with beta- xu, aspirin, high-intensity statin therapy, and nitroglycerin. Continue heparin for anginal symptoms intermittently throughout this hospital stay with minimal exertion. (3) Elevated troponin: Troponins are not diagnostic of myocardial infarction but were slightly elevated in the setting of acute coronary syndrome. Plan as above. (4) Exertional angina: Unstable angina as noted above. Plan as above. (5) Dyslipidemia: LDL is elevated. Continue high-intensity statin therapy which was initiated during this hospitalization. (6) HTN (hypertension): Blood pressure was initially elevated but has since been better controlled and mostly normotensive. Continue beta-xu. Consider low-dose NANCY- inhibitor if needed. (7) Disposition: Recommend transfer to [place] surgery Center. [facility] has accepted the patient in transfer to be evaluated by CT surgeon for bypass surgery. Dr. Ariana Barrera, primary hospitalist, was notified of cath findings and plan of care. Subjective Over the weekend, she continued to have chest discomfort, especially with exertion such as walking back and forth to the restroom. She also had 1 other episode after exerting herself and bending forward. She denies shortness of breath, syncope, near-syncope, palpitations, or bleeding such as melena, hematochezia, or hematuria. Overall, she stated that she had been taking it easy since admission, trying to avoid ambulation. She underwent cardiac catheterization this morning and was found to have severe multivessel CAD. She tolerated the catheterization well. Review of systems: As above. Physical Exam Physical Exam: Gen.: No acute distress. Alert and oriented. HEENT: Anicteric sclera. Neck: No JVD. Cardiac: Regular. Normal S1-S2. No murmurs, rubs, or gallops. Pulmonary: Clear to auscultation bilaterally without wheezes, rales, or rhonchi. Abdomen: Soft, nontender, nondistended, with normoactive bowel sounds. No bruits noted. Extremities: No edema or cyanosis. Psychiatric: Affect appears appropriate. Results & Data Vital Signs (Past 12 Hours) Vital Signs Temp Pulse Resp BP Pulse Ox 03/10/19 04:19 36.6 C 72 18 136/75 94 03/10/19 00:12 36.4 C L 80 19 136/78 92 03/09/19 19:10 36.6 C 83 18 129/83 95 Intake & Output 03/08/19 03/09/19 03/10/19 03/11/19 06:59 06:59 06:59 06:59 Intake Total 370 / 370 1906.767 / 7815.399 5945.233 / 1543.233 Output Total 600 / 600 2076 / 2076 2225 / 2225 Balance -230 / -230 -169.233 / -169.233 -681.767 / -681.767 Weight 87.2 kg 87.5 kg 88.4 kg Laboratory Results Laboratory Results WBC 4.47 K/uL (4.8-10.8) L 03/10/19 06:15 RBC 4.27 M/uL (4.2-5.4) 03/10/19 06:15 Hgb 13.2 g/dL (12.0-16.0) 03/10/19 06:15 Hct 38.9 % (37-47) 03/10/19 06:15 MCV 91.1 fL (80-100) 03/10/19 06:15 MCH 30.9 pg (25-34) 03/10/19 06:15 MCHC 33.9 g/dL (32-36) 03/10/19 06:15 RDW Std Deviation 43.5 fL (36.4-46.3) 03/10/19 06:15 RDW Coeff of Joanie 13.1 % (11.5-14.5) 03/10/19 06:15 Plt Count 160 K/uL (130-400) 03/10/19 06:15 MPV 10.5 fL (7.4-10.4) H 03/10/19 06:15 PT 10.5 Seconds (9.0-12.0) 03/07/19 16:25 INR 1.0 (0.9-1.1) 03/07/19 16:25 APTT 62.1 Seconds (21.0-31.0) H* 03/09/19 02:39 PTT Ratio 2.3 03/09/19 02:39 Sodium 138 mmol/L (136-145) 03/09/19 02:39 Potassium 3.5 mmol/L (3.5-5.1) 03/09/19 02:39 Chloride 108 mmol/L (98-107) H 03/09/19 02:39 Carbon Dioxide 24 mmol/L (21-32) 03/09/19 02:39 Anion Gap 6.0 (3-11) 03/09/19 02:39 BUN 20 mg/dl (7-18) H 03/09/19 02:39 Creatinine 0.86 mg/dl (0.6-1.2) 03/09/19 02:39 Est Cr Clr Drug Dosing 56.8 ml/min 03/09/19 02:39 Est GFR ( Amer) 78.2 03/09/19 02:39 Est GFR (Non-Af Amer) 67.5 03/09/19 02:39 BUN/Creatinine Ratio 23.5 (10-20) H 03/09/19 02:39 Glucose 120 mg/dl (70-99) H 03/09/19 02:39 Calcium 8.1 mg/dl (8.5-10.1) L 03/09/19 02:39 Magnesium 2.2 mg/dl (1.8-2.4) 03/09/19 02:39 Total Bilirubin 1.3 mg/dl (0.2-1) H 03/08/19 06:12 AST 17 U/L (15-37) 03/08/19 06:12 ALT 25 U/L (12-78) 03/08/19 06:12 Alkaline Phosphatase 93 U/L (45-117) 03/08/19 06:12 Troponin I 0.112 ng/ml (0-0.045) H* 03/08/19 06:12 Total Protein 7.5 gm/dl (6.4-8.2) 03/08/19 06:12 Albumin 3.5 gm/dl (3.4-5.0) 03/08/19 06:12 Globulin 4.0 gm/dl (2.5-4.0) 03/08/19 06:12 Albumin/Globulin Ratio 0.9 (0.9-2) 03/08/19 06:12 Diagnostic Findings ECG personally reviewed: ECG 03/09/2019: Sinus rhythm with PVCs [address]/T-wave abnormality. T-wave less inverted in lateral leads compared to 03/08/2019. Cardiac catheterization 03/10/2019: Severe multivessel CAD including LAD, circumflex, and RCA. Medications Administered Current Inpatient Medications Aspirin (Ecotrin Ectab) 81 mg PO DAILY [facility] Stop: 04/07/19 08:59 Last Admin: 03/09/19 08:12 Dose: 81 mg Documented by: Atorvastatin Calcium (Lipitor) 80 mg PO HS [facility] Stop: 04/07/19 20:59 Last Admin: 03/09/19 19:33 Dose: 80 mg Documented by: Docusate Sodium (Colace) 100 mg PO BID [facility] Stop: 04/08/19 21:59 Last Admin: 03/09/19 22:00 Dose: 100 mg Documented by: Hydralazine HCl (Hydralazine Hcl) 10 mg IV Q8 PRN PRN Reason: htn Stop: 04/06/19 20:42 Heparin Sodium/Dextrose (Heparin Sodium/Dextrose) 25,000 units in 500 mls @ 20 mls/hr IV .Q24H [facility]; Protocol Stop: 04/07/19 12:59 Last Admin: 03/09/19 12:26 Dose: 1,000 units/hr, 20 mls/hr Documented by: Ioversol (Optiray 320 125ml) 120 ml IV ONCE PRN PRN Reason: Interaction Checking Stop: 03/11/19 17:17 Last Admin: 03/07/19 17:19 Dose: 120 ml Documented by: Levothyroxine Sodium (Synthroid) 88 mcg PO DAILYBB [facility] Stop: 04/08/19 06:29 Last Admin: 03/10/19 06:07 Dose: 88 mcg Documented by: Metoprolol Succinate (Toprol Xl) 25 mg PO DAILY [facility] Stop: 04/07/19 08:59 Last Admin: 03/09/19 08:12 Dose: 25 mg Documented by: Miscellaneous (Order Awaiting Action) 1 ea N/A QS [facility] Stop: 04/06/19 20:59 Last Admin: 03/10/19 01:39 Dose: Not Given Documented by: Nitroglycerin (Nitro-Bid 2%) 1 inch EXT Q6H [facility] Stop: 04/06/19 19:14 Last Admin: 03/10/19 01:39 Dose: 1 inch Documented by: Ondansetron HCl (Zofran) 4 mg IV Q4H PRN PRN Reason: Nausea And Vomiting Stop: 04/06/19 18:19 Pantoprazole Sodium (Protonix) 40 mg PO DAILY [facility] Stop: 04/07/19 08:59 Last Admin: 03/09/19 08:12 Dose: 40 mg Documented by: Ticagrelor (Brilinta) 90 mg PO BID [facility] Stop: 04/07/19 20:59 Last Admin: 03/09/19 19:34 Dose: 90 mg Documented by: Vitamin D (Vitamin D3) 1,000 units PO DAILY [facility] Stop: 04/07/19 08:59 Last Admin: 03/09/19 08:12 Dose: 1,000 units Documented by:
[2019-03-10 07:11] LABS: Partial Thromboplastin Ratio 2.9
[2019-03-10 07:13] LABS: Partial Thromboplastin Time 77.4 Seconds (21.0-31.0)
--- NOTE | 2019-03-10 07:53 | Post Operative Brief Note ---
Cardiology Brief Post Op Date of Surgery March 10, 2019 Pre & Post Diagnosis Operation Date: 03/10/19 06:35 <No data on this case meets the specified criteria> Procedure Left heart cath and coronary angiography. Shotblast Operator Margarito Pruett MD Commercial Director Holly Sherman Estimated Blood Loss 25 Findings See Below Severe multivessel CAD. See full report. Complications none Disposition Disposition: PCU
[2019-03-10] MEDS ORDERED: SODIUM CHLORIDE 0.9% 1000ML 1,000 ML IV SCH (08:00)
--- NOTE | 2019-03-10 08:20 | Cardiac Catheterization ---
Cardiac Cath Procedure Full Procedure Date March 10, 2019 Pre-Procedure Diagnosis Pre-Procedure Diagnosis: Acute Coronary Syndrome AUC Score AUC Score: 8 Post-Procedure Diagnosis Post-Procedure Diagnosis: Severe CAD Procedure(s) Performed Procedure(s) Performed: Coronary Angiography and Left Heart Cath Chief Engineer Production Margarito Pruett MD Medical Records Specialist(s) Holly Sherman Estimated Blood Loss Estimated Blood Loss: < 30 ml Medication(s) Medication(s): Fentanyl, Heparin, Lidocaine 1%, Nicardipine and Versed Summary of Findings Coronary angiography: 1. Left main coronary artery: The LMCA is large in caliber without significant CAD. 2. Left anterior descending: The LAD is a large caliber vessel that extends to the apex. Proximal LAD long 70-80% stenosis. Small D1 proximal 50-60% stenosis. Remainder of LAD and medium caliber D2 without significant CAD. 3. Circumflex: The circumflex is a large caliber vessel. Proximal circumflex 30-40%. Mid circumflex 95% stenosis followed by 20% stenosis. Small OM1. DINORAH 3 flow. 4. Right coronary artery: The RCA is large and dominant. Early proximal RCA 50%. Late proximal RCA 90%. Mid RCA 40%. Distal RCA 50-60%. Small PDA without significant CAD. Large PL without significant CAD. Left heart catheterization: 1. Left ventriculography was not performed. 2. No aortic stenosis. 3. Normal LVEDP; 12mmHg. Sedation start time: 7:07 a.m. Sedation end time: 7:48 a.m. Procedural details: 1. Coronary angiography of the RCA was performed with 5 Chinese JR4 diagnostic catheter. 2. Coronary angiography of the LMCA was performed with 5 Chinese AL1 diagnostic catheter. Impression: 1. Severe multivessel CAD including proximal LAD, circumflex, and RCA. 2. No aortic stenosis. 3. Normal LVEDP. Plan: 1. Transfer to [place] surgery [facility] for evaluation for CABG. Hemodynamics Rest Ao:: 119/61 Final Ao: 120/60 LV: 120/8/12 Recommendations Recommendations: CABG Specimens Specimens: None Radiation Exposure (mGy) 1698 mGy. Fluoro time 15.4 min Contrast (mls) 40 ml Procedural Complication(s) None Disposition PCU ACC Data: Dust Collector Cardiac Status Clinical evaluation leading to the procedure CAD Presenation: Unstable angina Anginal Classification: CCS IV Heart Failure: No Cardiogenic Shock within 24 Hours: No Cardiac Arrest within 24 Hours: No Imaging Studies Past 6 Months: Yes Stress Studies Past 6 Months: No Standard Exercise Test: No Stress Echocardiogram: No Stress Testing w/SPECT MPI: No Cardiac CTA: No Coronary Anatomy Dominant: Right Left Main (% Stenosis): Normal LAD (% Stenosis): Proximal (70-80%) D1 (% Stenosis): Proximal (50-60%) D2 (% Stenosis): Normal Circumflex (% Stenosis): Proximal (30-40%) and Mid (95%) OM1 (% Stenosis): Normal RCA (% Stenosis): Proximal (Early prox 50%. Late prox 90%.), Mid (40%) and Distal (50-60%) R PDA (% Stenosis): Normal R PL1 (% Stenosis): Normal Left Ventricular Angiography EF (%): n/a Diagnostic Physicians Name: Margarito Pruett MD Status: Elective Closure Device Percutaneous Entry Location: Radial Closure Device: Radial Band Recommendations: CABG
[2019-03-10] MEDS: ASPIRIN 81 MG ECTAB PO SCH (08:36)
[2019-03-10] MEDS: DOCUSATE SODIUM 100 MG CAP PO SCH (08:36)
[2019-03-10] MEDS: METOPROLOL SUCC 25MG EXT REL TAB PO SCH (08:36)
[2019-03-10] MEDS: PANTOprazole 40 MG TAB PO SCH (08:56)
[2019-03-10] MEDS: CHOLECALCIFEROL 1,000 UNITS TAB PO SCH (08:56)
--- NOTE | 2019-03-10 09:02 | Discharge Summary ---
Date of Service March 10, 2019 Admission HPI Per Admitting Provider This is a 73-year-old female with past medical history of HTN, HLD, factor V Leiden carrier, PVCs, hypothyroidism, arthritis and lumbar disc disease who presents with exertional angina over the past 2 weeks. Patient was in seeing her family physician for routine scheduled appointment. She was sent to the ER due to history of symptoms. She notes that upon walking only a few steps on incline she develops a substernal chest pain which radiates to her shoulder blades. At one point she thought that this was indigestion, used antacids however felt no relief. She denies any lightheadedness, headache, palpitation, flutter, or shortness of breath during the episodes. Pain is relieved by sitting still for several minutes periods, and bending over forward intensifies her pain. She does not routinely exercise. Troponin is mildly elevated upon initial presentation in the ER, second set was slightly lower. Will trend EKG appears without signs of ischemia or ST wave changes Principal Diagnosis Triple-vessel CAD Discharge Exam Constitutional WD/WN, vitals as above Eyes PERRL, conjunctivae normal, anicteric sclerae ENMT external ear and nose normal, oropharynx normal Neck trachea midline, no thyromegaly Respiratory normal respiratory effort, lungs clear to auscultation Cardiovascular RRR, no murmur, no edema Gastrointestinal (Abdomen) normal bowel sounds, soft, nontender, no hepatosplenomegaly Musculoskeletal Extremities: extremities normal to inspection; no cyanosis and no clubbing Skin no rashes, warm and dry Neurologic moves all extremities and awake; no focal motor deficits Psychiatric A+Ox3, euthymic affect Discharge Data Allergies Allergy/AdvReac Type Severity Reaction Status Date / Time hydromorphone [From Dilaudid] Allergy Severe SWELLING Verified 03/07/19 19:02 OF FEET acetaminophen [From Percocet] Allergy Unknown Verified 03/07/19 19:02 amoxicillin [From Amoxil] Allergy Unknown Verified 03/07/19 19:02 oxycodone [From Percocet] Allergy Unknown Verified 03/07/19 19:02 Consultations 03/07/19 17:59 ED Decision to Admit Stat 03/07/19 18:20 Consult Case Management - Discharge Planning Routine 03/07/19 20:43 Consult Cardiology Routine Procedures Performed Operation Date: 03/10/19 06:35 Actual Procedures p Cath, Left with Cors and Vent - Margarito Pruett MD s Cineradiography w/Routine Exam - Margarito Pruett MD Ordered Studies 03/07/19 16:40 CT angio chest dissec wo/w con Stat 03/10/19 06:38 CL Cath Imgs for PACS use only Routine Hospital Course (1) NSTEMI (non-ST elevated myocardial infarction): This patient is a 73-year-old female with a history of HTN, hyperlipidemia, hypothyroidism, factor V Leiden deficiency, lumbar DDD, OA, and PVCs, who presented with unstable angina and was found to have acute coronary syndrome/NSTEMI. She was having angina with exertion is relieved with rest which is new in onset for the last 2 weeks prior to admission. ECG here with ST depression in the lateral leads and on repeat ECG with more pronounced T wave inversion in the lateral leads Troponins mildly elevated and remained elevated serially at 0.128/0 0.117/0 0.117/0.112 Echocardiogram with normal EF and no wall motion abnormalities, no valvular disease LDL quite elevated at 166 Appreciate cardiology consultation Continues with angina with minimal exertion today -Continue Nitropaste -Increase atorvastatin to high intensity 80 mg daily -Would permanently discontinue NSAIDs such as etodolac from home LHC on 03/10 showed triple-vessel disease: 1. Left main coronary artery: The LMCA is large in caliber without significant CAD. 2. Left anterior descending: The LAD is a large caliber vessel that extends to the apex. Proximal LAD long 70-80% stenosis. Small D1 proximal 50-60% stenosis. Remainder of LAD and medium caliber D2 without significant CAD. 3. Circumflex: The circumflex is a large caliber vessel. Proximal circumflex 30-40%. Mid circumflex 95% stenosis followed by 20% stenosis. Small OM1. DINORAH 3 flow. 4. Right coronary artery: The RCA is large and dominant. Early proximal RCA 50%. Late proximal RCA 90%. Mid RCA 40%. Distal RCA 50-60%. Small PDA without significant CAD. Large PL without significant CAD. Left heart catheterization: 1. Left ventriculography was not performed. 2. No aortic stenosis. 3. Normal LVEDP; 12mmHg. Sedation start time: 7:07 a.m. Sedation end time: 7:48 a.m. Procedural details: 1. Coronary angiography of the RCA was performed with 5 Uzbek JR4 diagnostic catheter. 2. Coronary angiography of the LMCA was performed with 5 Uzbek AL1 diagnostic catheter. Impression: 1. Severe multivessel CAD including proximal LAD, circumflex, and RCA. 2. No aortic stenosis. 3. Normal LVEDP. Plan: 1. Transfer to [place] [facility] for evaluation for CABG. Patient was on ASA, Brillenta, and heparin gtt. Last Brillenta dose was on 03/09 in the evening. (2) HTN (hypertension): -Blood pressures better controlled since starting metoprolol upon admission - pt reports not using outpt antihypertensives but was prescribed metoprolol succinate 25 mg at her PCPs office on the day of admission but she had not yet picked it up at the pharmacy -Continue metoprolol succinate 25 mg once daily -Continue to follow blood pressures (3) Hypothyroidism: TSH here is quite elevated at 8.27 and was normal 6 months ago -Increased levothyroxine to 88 mcg daily -Check TSH in 4 to 6 weeks (4) Factor V deficiency: -History of such due to family genetic testing -Patient has no history of clotting disorders, DVT or PE. She only had the genetic test done because she had 2 granddaughters with recurrent miscarriages that were found to be positive for factor V Leiden deficiency (5) Left shoulder pain: - S/p Left shoulder surgery which was at the end of Oct 2018. - Currently going to PT/OT as outpatient -Discontinued NSAIDs (6) Arthritis: -Using etodolac 400 mg BID at home-would permanently discontinue given she will need dual antiplatelet therapy most likely and to reduce risk of HI and stroke that NSAIDs carry (7) Dyslipidemia: LDL very elevated at 166 Was on Krill oil only at home -Started atorvastatin 80 mg daily -Follow LFTs and lipid panel in 6 to 8 weeks as an outpatient (8) PVC (premature ventricular contraction): -History of such, followed with cardiology, Dr. Martinez as an outpatient -only a few so far here on telemetry monitoring -Started on metoprolol (9) Lumbar disc disease: - stable (10) DVT prophylaxis: - teds, heparin drip Disposition-remain on PCU, telemetry, awaiting cardiac catheterization on Sunday Total Time Total Time Spent Total Time Spent (In Minutes): 35 Discharge Plan Discharge Items Patient Disposition: Transfer Acute Care Hospital Reason For Visit: CHEST PAIN Discharge Diagnosis: Triple vessel CAD Discharge Goals: Decrease discomfort and Improve disease control Activity: Resume your previous activity Non-emergency contact: Primary Care Provider and Smasher Call non-emergency contact if: you have any medication questions Follow-up/Referrals: Srinivas Monroe DO [Primary Care Provider] - Diet: Heart Healthy Addtl Provider Instructions: Admitted for chest pain. [facility] found: Coronary angiography: 1. Left main coronary artery: The LMCA is large in caliber without significant CAD. 2. Left anterior descending: The LAD is a large caliber vessel that extends to the apex. Proximal LAD long 70-80% stenosis. Small D1 proximal 50-60% stenosis. Remainder of LAD and medium caliber D2 without significant CAD. 3. Circumflex: The circumflex is a large caliber vessel. Proximal circumflex 30-40%. Mid circumflex 95% stenosis followed by 20% stenosis. Small OM1. DINORAH 3 flow. 4. Right coronary artery: The RCA is large and dominant. Early proximal RCA 50%. Late proximal RCA 90%. Mid RCA 40%. Distal RCA 50-60%. Small PDA without significant CAD. Large PL without significant CAD. Left heart catheterization: 1. Left ventriculography was not performed. 2. No aortic stenosis. 3. Normal LVEDP; 12mmHg. Sedation start time: 7:07 a.m. Sedation end time: 7:48 a.m. Procedural details: 1. Coronary angiography of the RCA was performed with 5 Uzbek JR4 diagnostic catheter. 2. Coronary angiography of the LMCA was performed with 5 Uzbek AL1 diagnostic catheter. Impression: 1. Severe multivessel CAD including proximal LAD, circumflex, and RCA. 2. No aortic stenosis. 3. Normal LVEDP. Plan: 1. Transfer to [place] [facility] for evaluation for CABG. On aspirin, Brillenta, and heparin gtt for continued chest pain. Last dose of Brillenta was 03/09 in the evening. Prescriptions: New Nitro-Bid 2 % Ointment 1 inch EXT Q6H Qty: 1 RF: 0 Continued metoprolol succinate [Toprol XL] 25 mg tablet extended release 24 hr 25 mg PO DAILY Qty: 90 RF: 3 cholecalciferol (vitamin D3) 1,000 unit tablet 1,000 units PO DAILY Qty: 90 RF: 0 etodolac 400 mg tablet 400 mg PO BID Qty: 180 RF: 3 levothyroxine 75 mcg tablet 75 mcg PO DAILY Qty: 90 RF: 3 vitamin B complex [B Complex-Vitamin B12] tablet 1 tab PO DAILY Qty: 90 RF: 3 omeprazole 40 mg capsule,delayed release(DR/EC) 40 mg PO DAILY RF: 0 [id number] [krill oil] 1,[id number] mg Capsule 1 cap PO HS RF: 0 aspirin 81 mg tablet,delayed release (DR/EC) 81 mg PO QPM RF: 0 Stand-Alone Forms: [facility] Discharge Orders: Discharge Order (Routine); Ordered 03/10/19 Ordered By: Srinivas Barrera Admission Data Admit Date/Time: 03/08/19 14:53 Attending Provider: Srinivas Barrera Admit Provider: Mayur Mclaughlin Primary Care Provider: Srinivas Monroe Other Providers: Doc De La O ; Srinivas Barrera Service: Telemetry
[2019-03-10] MEDS ORDERED: Nursing to Pharmacy Communication ONE (09:05)
--- NOTE | 2019-03-10 09:40 | Post Anesthesia Assessment ---
Date of Service March 10, 2019 Post Sedation Assessment Vital Signs Temp Pulse Pulse Resp BP BP Pulse Ox 03/10/19 09:00 74 18 146/110 H 95 03/10/19 08:45 80 17 161/87 H 95 03/10/19 08:30 69 17 155/90 H 94 03/10/19 08:15 36.6 C 77 17 135/89 93 03/10/19 04:19 36.6 C 72 18 136/75 94 03/10/19 00:12 36.4 C L 80 19 136/78 92 03/09/19 19:10 36.6 C 83 18 129/83 95 03/09/19 15:40 36.8 C 72 18 136/83 93 03/09/19 14:50 86 03/09/19 11:56 36.9 C 85 18 122/88 92 Recovery Score Activity: Moves 4 extremities Respiration: Deep Breath/Cough Circulation: +/-20% PreAnes Value Consciousness: Fully Awake Post Sedation Plan On clinical assessment, the patient appears to have tolerated the sedation without complications. Patient is recovering as anticipated. Patient will continue to be monitored by nursing and may be discharged when sedation discharge criteria are met per below protocol. Upon Completions of procedure and additional 15 minutes continue every 5 minute vital signs and the P.A.R. score; then discharge to a Phase I or Fast Track to Phase II per the following guidelines: * Discharge Patient to appropriate Phase II area if PAR is 8 or greater or return to pre- procedure baseline. The post - procedure orders will be as directed. * If PAR score is less than 8 or not return to pre-procedure baseline then patient will follow Phase I monitoring till PAR is reached for Phase II. The Phase I may be done in procedure room or may call to secure a Phase I area. * If naloxone or flumazenil are used for reversal, hold in Phase I for continued monitoring from when last reversal dose was given for a minimum of 60 minutes or longer pending the nurse and/or physician discretion of patient condition before discharge to Phase II. Please call the Sedation Physician to re-evaluate and complete post-note for discharge to Phase II area. Do NOT discharge from procedure sedation or Phase 1 until post- sedation evaluation note is complete by procedure /sedation MD Sedation Discharge Instructions to be given to the patient at discharge to home.
--- NOTE | 2019-03-10 10:20 | CT Scan Report ---
CT SCAN OF THE BRAIN WITHOUT IV CONTRAST CLINICAL HISTORY: Change in mental status. The patient's "head feels fuzzy". COMPARISON STUDY: No priors. TECHNIQUE: Unenhanced axial CT scan of the brain is performed from the vertex to the skull base. A do se lowering technique was utilized adhering to the principles of ALARA. CT DOSE: 537.48 mGy.cm FINDINGS: Brain parenchyma: There is mild subcortical and periventricular microangiopathic change. There is no hemorrhage, mass effect, or evidence of acute territorial ischemia by CT criteria. Morris-white matter differentiation is preserved. No extra-axial fluid collection is seen. There is residual IV contrast present within the intracranial vessels. Mineralization is noted in the basal ganglia. Ventricles, sulci, cisterns: Normal in configuration. Intracranial vasculature: There is atherosclerotic calcification of the cavernous carotid and vertebr al arteries. Calvarium: Unremarkable. Sinuses and mastoids: The visualized paranasal sinuses are clear. The mastoid air cells are well pneu matized. Orbits: The bony orbits are grossly intact. IMPRESSION: There is no hemorrhage, mass effect, or evidence of acute territorial ischemia by CT chary eric. Electronically signed by: Malachi Jacobson M.D. 03/10/2019 10:19 AM
== END 2019-03-10 10:50 | disposition short-term general hospital (02) | DRG 281 ==
LOC: 2E 16:04 → ED 16:04 → SUATTDRO 18:19 → 2E 18:53 → SUATTDRO 03-08 14:53

== ENCOUNTER 2019-09-22 12:53 | Observation (INO) ==
[2019-09-22] MEDS ORDERED: ASPIRIN CHEW 324 MG PO STA (13:34)
[2019-09-22 13:43] LABS: Basophils # (auto) 0.02 K/uL (0-0.2); Basophils % (auto) 0.4 %; Eosinophils # (auto) 0.07 K/uL (0-0.5); Eosinophils % (auto) 1.6 %; Hematocrit (blood only) 42.5 % (37-47); Hemoglobin 14.3 g/dL (12.0-16.0); Immature Granulocytes # (auto) 0.01 K/uL (0.00-0.02); Immature Granulocytes % (auto) 0.2 %; Lymphocytes # (auto) 1.58 K/uL (1.2-3.4); Lymphocytes % (auto) 35.2 %; Mean Corpuscular Hemoglobin 30.6 pg (25-34); Mean Corpuscular Hgb Conc 33.6 g/dL (32-36); Mean Corpuscular Volume 90.8 fL (80-100); Mean Platelet Volume 10.1 fL (7.4-10.4); Monocytes # (auto) 0.31 K/uL (0.11-0.59); Monocytes % (auto) 6.9 %; Neutrophils % (auto) 55.7 %; Platelet Count 161 K/uL (130-400); RDW Coefficient of Variation 13.4 % (11.5-14.5); RDW Standard Deviation 43.7 fL (36.4-46.3); Red Blood Count 4.68 M/uL (4.2-5.4); White Blood Count 4.49 K/uL (4.8-10.8)
--- NOTE | 2019-09-22 13:49 | XRay Report ---
XR chest 1V portable CLINICAL HISTORY: Chest Pain COMPARISON STUDY: Chest CT March 07, 2019. FINDINGS: Lung volumes are normal. Lungs are clear. There is no pneumothorax or pleural effusion. Car diac size is normal. Mediastinal contours are normal. There is no evidence for pulmonary edema. IMPRESSION: No acute cardiopulmonary findings. ACT 112: Negative or not required by law. Electronically signed by: Girish Pimentel M.D. 09/22/2019 1:48 PM
[2019-09-22 14:01] LABS: Alanine Aminotransferase 40 U/L (12-78); Aspartate Aminotransferase 22 U/L (15-37); BUN Creatinine Ratio 15.8 (10-20); Blood Urea Nitrogen 11 mg/dl (7-18); Carbon Dioxide 28 mmol/L (21-32); Chloride 108 mmol/L (98-107); Creatinine Clr Calc Pharmacy 68.7 ml/min; Est GFR (African American) 100.8; Glucose 87 mg/dl (70-99); Lipase 149 U/L (73-393); Potassium 3.7 mmol/L (3.5-5.1); Sodium 140 mmol/L (136-145)
[2019-09-22 14:06] LABS: Alkaline Phosphatase 93 U/L (45-117); Bilirubin,Total 1.4 mg/dl (0.2-1); Troponin I < 0.015 ng/ml (0-0.045)
--- NOTE | 2019-09-22 15:41 | Electrocardiogram Report ---
Test Reason : Blood Pressure : / mmHG Vent. Rate : 069 BPM Atrial Rate : 069 BPM P-R Int : 188 ms QRS Dur : 088 ms QT Int : 414 ms P-R-T Axes : -08 087 037 degrees QTc Int : 443 ms Normal sinus rhythm Nonspecific ST and T wave abnormality Abnormal ECG When compared with ECG of 10-MAR-2019 10:02, QRS axis Shifted right Nonspecific T wave abnormality now evident in Anterior leads Nonspecific T wave abnormality, improved in Lateral leads Confirmed by Doc De La O ([id number]) on 09/22/2019 3:41:24 PM Referred By: Confirmed By:Doc De La O
--- NOTE | 2019-09-22 18:28 | History & Physical Report ---
Date of Service September 22, 2019 Assessment & Plan (1) Chest pain: Admit to PCU on telemetry for observation Vital signs every 4 hours. Troponin x3 with EKG TTE Monitor electrolytes and replenish. Consider consulting cardiology in a.m. If troponin negative would consider nuclear stress test. DVT prophylaxis Lovenox 40 mg subcu daily Full code Present on Admission?: Yes (2) Hypertension: Continue monitoring blood pressure every 4 hours. Continue home medicine aspirin 81 mg p.o. every afternoon, clopidogrel 75 mg p.o. daily. Metoprolol succinate 25 mg p.o. daily Pinon-3 fatty acids 1000 mg p.o. daily. Present on Admission?: Yes (3) CAD (coronary artery disease), [place] coronary artery: Continue aspirin 81 mg p.o. every afternoon, Atorvastatin 80 mg p.o. nightly, Metoprolol succinate 25 mg p.o. daily, For exertional angina continue nitroglycerin 0.4 mg slow release every 5 minutes as needed. Continue omega-3 fatty acids 1000 mg p.o. daily. Continue vitamin B complex p.o. daily. Present on Admission?: Yes (4) Dyslipidemia: Lipid panel pending. Continue atorvastatin 80 mg p.o. nightly. Present on Admission?: Yes History of Present Illness Chief Complaint: Exertional chest pain Primary Care Provider: Srinivas Monroe DO Patient is a 73 years old female with past medical history of hypertension, hypothyroidism, arthritis, left shoulder pain, exertional angina, dyslipidemia, coronary artery disease with 4 stents placement, and NSTEMI, who presents to the emergency room with a complaint of chest pain that started 2 days ago. Patient reports that pain is located in the left chest and radiated to her left shoulder while she was cooking. Patient confirms that the episodes were occurring during the day but each episode will last more than 5 minutes. Patient had similar pain this morning around 8:30 AM and started to be concerned what brought prompted her to present to the emergency room. Patient reports that she felt better after taking aspirin yesterday evening. Patient also reports that she is on blood thinners and she never misses the dose. EKG is reviewed and showed patient in normal sinus rhythm. She has nonspecific ST and T wave abnormalities. QRS axis is shifted right. Patient had nonspecific T wave abnormalities in the anterior and lateral leads. Labs are reviewed: WBC is 4.49, hemoglobin 14.3, hematocrit 42.5, platelets 161, sodium 140, potassium 3.7, chloride 108, BUN 11, creatinine 0.69, GFR 87, hemoglobin A1c pending total bilirubin 1.4, AST 22, ALT 40, troponin -0 0.0152. BNP 153, TSH 0.467. Chest x-rays shows no acute cardiopulmonary findings. No pleural effusion or pneumothorax. No evidence of pulmonary edema. Decision was made to admit patient to PCU on telemetry for observation to rule out acute coronary syndrome. Allergies Allergy/AdvReac Type Severity Reaction Status Date / Time hydromorphone [From Dilaudid] Allergy Severe SWELLING Verified 09/22/19 14:00 OF FEET amoxicillin [From Amoxil] Allergy Unknown Verified 09/22/19 14:00 oxycodone [From Percocet] Allergy Unknown Verified 09/22/19 14:00 Home Medications Home Medications Medication Instructions Recorded Confirmed Type cholecalciferol (vitamin D3) 25 1,000 units PO DAILY #90 tab 03/05/19 09/22/19 Rx mcg (1,000 unit) tablet vitamin B complex 1 tab PO DAILY #90 tab 03/05/19 09/22/19 Rx aspirin 81 mg PO QPM 03/07/19 09/22/19 History metoprolol succinate 25 mg 25 mg PO DAILY #90 tab 03/15/19 09/22/19 Rx tablet,extended release 24 hr clopidogrel 75 mg tablet 75 mg PO DAILY #30 tab 03/17/19 09/22/19 Rx nitroglycerin 0.4 mg sublingual 0.4 mg SL Q5M PRN #25 tab 03/17/19 09/22/19 Rx tablet multivitamin with minerals 1 tab PO Q12H tab 05/13/19 09/22/19 History omega-3 fatty acids 1,000 mg 1,000 mg PO DAILY 05/13/19 09/22/19 History capsule levothyroxine 112 mcg tablet 112 mcg PO DAILY #30 tab 06/04/19 09/22/19 Rx atorvastatin 80 mg tablet 80 mg PO HS #30 tab 07/07/19 09/22/19 Rx Past Med/Surg History Medical History Abnormal ECG (Chronic) Arthritis (Chronic) Factor V deficiency (Chronic) Hypothyroidism (Chronic) Left shoulder pain (Chronic) Lumbar disc disease (Chronic) Medicare annual wellness visit, initial (Chronic) PVC (premature ventricular contraction) (Chronic) Surgical History H/O shoulder surgery History of coronary artery stent placement History of dental surgery Family History Son Myocardial infarction Hypertension Mother Myocardial infarction Cardiac disorder Father Non-Hodgkin lymphoma Kidney stones Grandmother Ovarian cancer Social History Preferred Language: Greek Communication Ability: Effective 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 Beliefs That Will Affect Care: None marital status: Current Living Situation: Spouse current occupational status: retired current occupation: [employer] Feels Safe at Home: Yes Safety Concerns: Feels Safe At This Time Smoking Status: Never smoker Second Hand Exposure: No ; Hx Alcohol Use: No Hx Substance Use: No Review of Systems Review of Systems: All systems reviewed & are unremarkable except as noted in HPI & below Physical Exam Constitutional: WD/WN, vitals as above well developed Eyes: PERRL, conjunctivae normal, anicteric sclerae ENMT: external ear and nose normal, oropharynx normal Neck: trachea midline, no thyromegaly Respiratory: normal respiratory effort, lungs clear to auscultation Cardiovascular: Heart Sounds: normal S1, normal S2 and + murmur Vessels: dorsalis pedis pulses present Gastrointestinal (Abdomen): normal bowel sounds, soft, nontender, no hepatosplenomegaly Musculoskeletal: no cyanosis or clubbing, extremities motor strength 5/5 Skin: no rashes, warm and dry Neurologic: patellar DTR's 2+ bilat, sensation intact Psychiatric: A+Ox3, euthymic affect Lymphatic: no cervical or axillary lymphadenopathy Results & Data Vital Signs (Past 12 Hours) Vital Signs Temp Pulse Pulse Resp BP BP Pulse Ox 09/22/19 17:01 76 17 117/80 94 09/22/19 17:00 68 16 09/22/19 16:30 75 21 98 09/22/19 16:02 70 16 99 09/22/19 16:01 68 15 183/92 H 95 09/22/19 16:00 67 17 97 09/22/19 15:30 72 22 97 09/22/19 15:00 70 23 150/81 H 95 09/22/19 14:30 72 20 94 09/22/19 14:00 75 21 156/99 H 95 09/22/19 13:54 70 73 15 155/99 H 155/99 H 95 09/22/19 13:36 96 09/22/19 13:30 79 13 98 09/22/19 13:09 36.6 C 77 16 166/84 H 96 Code Status & VTE Plan Code Status Full code PG Care Time/CCT Total # of Minutes Spent Total Time Spent with Patient: Total time spent is greater than 50% in coordination of care (as documented) at patient's floor/unit and/or counseling patient: (1) Chest pain Chest pain type: unspecified Qualified Code(s): R07.9 - Chest pain, unspecified (2) Hypertension Hypertension type: unspecified Qualified Code(s): I10 - Essential (primary) hypertension
--- NOTE | 2019-09-22 19:18 | Emergency Department Note ---
Entered by Flor Petty acting as a scribe for Alberto Domínguez DO History of Present Illness General Chief complaint: Chest Pain Stated complaint: left sided chest pain Source: patient History of Present Illness Provider complaint: chest pain Onset (ago): day(s) 2 Location: chest and left Pain Consistency: + intermittent Maximum Pain Intensity: 0 Quality: + other (chest pain) Associated symptoms: + weakness (Left arm) Treatments prior to arrival: aspirin The patient, who is a 73 year old female with a medical history of chest pain, elevated troponin, and dyslipidemia, presents to the Emergency Room with complaints of chest pain that started two days ago. The patient locates this pain at her left chest. The patient informs that during the onset of her symptoms she thought she strained her left shoulder while she was cooking. The patient confirms that she has episodes throughout the day that lasts no longer than five minutes. The patient expresses that this morning she had more chest pressure that lasted longer than normal. The patient states that her latest episode was around 0830. The patient explains that during this episode she was typing reports. The patient states that she is experiencing left arm weakness. The patient reports having chest pain on March 10 due to exercise activity but expresses that her current symptoms are not similar. The patient states that the previous chest pain resulted in four stents. The patient states that she is on blood thinners and has not missed a dose. The patient reports taking an aspirin yesterday evening. Home Medications Home Medications Medication Instructions Recorded Confirmed Type cholecalciferol (vitamin D3) 25 1,000 units PO DAILY #90 tab 03/05/19 09/22/19 Rx mcg (1,000 unit) tablet vitamin B complex 1 tab PO DAILY #90 tab 03/05/19 09/22/19 Rx aspirin 81 mg PO QPM 03/07/19 09/22/19 History metoprolol succinate 25 mg 25 mg PO DAILY #90 tab 03/15/19 09/22/19 Rx tablet,extended release 24 hr clopidogrel 75 mg tablet 75 mg PO DAILY #30 tab 03/17/19 09/22/19 Rx nitroglycerin 0.4 mg sublingual 0.4 mg SL Q5M PRN #25 tab 03/17/19 09/22/19 Rx tablet multivitamin with minerals 1 tab PO Q12H tab 05/13/19 09/22/19 History omega-3 fatty acids 1,000 mg 1,000 mg PO DAILY 05/13/19 09/22/19 History capsule levothyroxine 112 mcg tablet 112 mcg PO DAILY #30 tab 06/04/19 09/22/19 Rx atorvastatin 80 mg tablet 80 mg PO HS #30 tab 07/07/19 09/22/19 Rx Allergies Allergy/AdvReac Type Severity Reaction Status Date / Time hydromorphone [From Dilaudid] Allergy Severe SWELLING Verified 09/22/19 14:00 OF FEET amoxicillin [From Amoxil] Allergy Unknown Verified 09/22/19 14:00 oxycodone [From Percocet] Allergy Unknown Verified 09/22/19 14:00 Past Med/Surg History Medical History (Updated 09/22/19 @ 19:11 by Flor Petty) Abnormal ECG (Chronic) Arthritis (Chronic) Factor V deficiency (Chronic) Hypothyroidism (Chronic) Left shoulder pain (Chronic) Lumbar disc disease (Chronic) Medicare annual wellness visit, initial (Chronic) PVC (premature ventricular contraction) (Chronic) Surgical History (Updated 09/22/19 @ 19:10 by Flor Petty) H/O shoulder surgery History of coronary artery stent placement History of dental surgery Family History (Updated 03/17/19 @ 09:53 by Joseph Zapata) Son Myocardial infarction Hypertension Mother Myocardial infarction Cardiac disorder Father Non-Hodgkin lymphoma Kidney stones Grandmother Ovarian cancer Social History (Updated 03/07/19 @ 18:41 by Faye Aleman PA-C) Preferred Language: Libyan Communication Ability: Effective Field Services Director Required: No Beliefs That Will Affect Care: None marital status: Current Living Situation: Spouse current occupational status: retired current occupation: [employer] Feels Safe at Home: Yes Smoking Status: Never smoker Second Hand Exposure: No ; Hx Alcohol Use: No Hx Substance Use: No Review of Systems See HPI for pertinent positives & negatives. and A total of 10 systems reviewed and were otherwise negative Physical Exam Vital Signs Vital Signs - 24 hr 09/22/19 13:09 09/22/19 13:30 09/22/19 13:36 Temperature 36.6 C Temperature Source Oral Pulse Rate 77 79 Pulse Rate [Apical] Pulse Rate from SpO2 Sensor 78 Pulse Rhythm Regular Pulse Strength Normal Respiratory Rate 16 13 Respiratory Effort / Characteristics Non-Labored Respiratory Depth Normal Respiratory Pattern Regular Blood Pressure 166/84 H Blood Pressure [Right Arm] Blood Pressure Mean 111 Blood Pressure Mean [Right Arm] Blood Pressure Position Sitting Pulse Oximetry 96 98 96 Oxygen Delivery Method Room Air Room Air Sepsis Recent Fever Within 48 Hours No Sepsis New/Unexplained Change in Mental Status No Sepsis Action Taken by Nursing No Action Required 09/22/19 13:54 09/22/19 14:00 09/22/19 14:30 Temperature Temperature Source Pulse Rate 70 75 72 Pulse Rate [Apical] 73 Pulse Rate from SpO2 Sensor 71 75 73 Pulse Rhythm Pulse Strength Respiratory Rate 15 21 20 Respiratory Effort / Characteristics Non-Labored Respiratory Depth Normal Respiratory Pattern Blood Pressure 155/99 H 156/99 H Blood Pressure [Right Arm] 155/99 H Blood Pressure Mean 111 121 Blood Pressure Mean [Right Arm] 117 Blood Pressure Position Pulse Oximetry 95 95 94 Oxygen Delivery Method Room Air Sepsis Recent Fever Within 48 Hours Sepsis New/Unexplained Change in Mental Status Sepsis Action Taken by Nursing 09/22/19 15:00 09/22/19 15:30 09/22/19 16:00 Temperature Temperature Source Pulse Rate 70 72 67 Pulse Rate [Apical] Pulse Rate from SpO2 Sensor 70 72 69 Pulse Rhythm Pulse Strength Respiratory Rate 23 22 17 Respiratory Effort / Characteristics Respiratory Depth Respiratory Pattern Blood Pressure 150/81 H Blood Pressure [Right Arm] Blood Pressure Mean 94 Blood Pressure Mean [Right Arm] Blood Pressure Position Pulse Oximetry 95 97 97 Oxygen Delivery Method Sepsis Recent Fever Within 48 Hours Sepsis New/Unexplained Change in Mental Status Sepsis Action Taken by Nursing 09/22/19 16:01 09/22/19 16:02 09/22/19 16:30 Temperature Temperature Source Pulse Rate 68 70 75 Pulse Rate [Apical] Pulse Rate from SpO2 Sensor 70 70 75 Pulse Rhythm Pulse Strength Respiratory Rate 15 16 21 Respiratory Effort / Characteristics Respiratory Depth Respiratory Pattern Blood Pressure 183/92 H Blood Pressure [Right Arm] Blood Pressure Mean 110 Blood Pressure Mean [Right Arm] Blood Pressure Position Pulse Oximetry 95 99 98 Oxygen Delivery Method Sepsis Recent Fever Within 48 Hours Sepsis New/Unexplained Change in Mental Status Sepsis Action Taken by Nursing 09/22/19 17:00 09/22/19 17:01 Temperature Temperature Source Pulse Rate 68 76 Pulse Rate [Apical] Pulse Rate from SpO2 Sensor 75 Pulse Rhythm Pulse Strength Respiratory Rate 16 17 Respiratory Effort / Characteristics Respiratory Depth Respiratory Pattern Blood Pressure 117/80 Blood Pressure [Right Arm] Blood Pressure Mean 93 Blood Pressure Mean [Right Arm] Blood Pressure Position Pulse Oximetry 94 Oxygen Delivery Method Sepsis Recent Fever Within 48 Hours Sepsis New/Unexplained Change in Mental Status Sepsis Action Taken by Nursing GENERAL: alert, well appearing, well nourished, no distress, non-toxic, sitting up in bed EYE EXAM: normal conjunctiva OROPHARYNX: no exudate, no erythema, lips, buccal mucosa, and tongue normal and mucous membranes are moist NECK: supple, no nuchal rigidity, no adenopathy, non-tender LUNGS: Clear to auscultation. Normal chest wall mechanics HEART: no murmurs, S1 normal and S2 normal ABDOMEN: abdomen soft, non-tender, normo-active bowel sounds, no masses, no rebound or guarding. BACK: Back is symmetrical on inspection and there is no deformity, no midline tenderness, no CVA tenderness. SKIN: no rashes and no bruising UPPER EXTREMITIES: upper extremities are grossly normal. LOWER EXTREMITIES: No pitting edema, calfs equal bilaterally NEURO EXAM: Normal sensorium, cranial nerves II-XII grossly intact, normal speech, no gross weakness of arms, no gross weakness of legs. Course Course ED COURSE: Vital signs were reviewed and showed hypertensive. The patients medical record was reviewed The above diagnostic studies were performed and reviewed. ED treatments and interventions as stated above. 1327: The patient was evaluated in room B10. A complete history and physical examination was performed. 1514: I reassessed the patient and informed her on her results so far 1521: I reviewed the patient's case with Dr. Fontenot, [facility] Hospitalist. He will evaluate the patient for further management. 1530: Upon reevaluation, the patient is resting.I discussed my findings with the patient and she understands and agrees with the treatment plan. Based on the patients age, coexisting illnesses, exam and lab findings the decision to treat as an inpatient was made. The patient remained stable while under my care. The patient will be evaluated for further management. Consultations Consultation #1: I reviewed the patient's case with Dr. Fontento [facility] Hospitalist. He will evaluate the patient for further management. Time: 15:21 Administered Medications Discontinued Medications Aspirin (Aspirin) 324 mg PO NOW STA Stop: 09/22/19 13:35 Last Admin: 09/22/19 13:54 Dose: 324 mg Documented by: [id number] Medical Decision Making Differential Diagnosis Differential diagnoses includes but is not limited to acute coronary syndrome, myocardial infarction, pericarditis, pulmonary embolus, aortic dissection, pneumonia, pneumothorax, musculoskeletal, shingles, esophageal. Medical Records Attestation: I reviewed the patient's medical records. Home Medications Current Medication List: was personally reviewed by me Laboratory Data Attestation: I reviewed the patient's lab results. Result diagrams: 09/22/19 13:30 09/22/19 13:30 Lab Results 09/22/19 09/22/19 Range/Units 13:30 13:30 WBC 4.49 L (4.8-10.8) K/uL RBC 4.68 (4.2-5.4) M/uL Hgb 14.3 (12.0-16.0) g/dL Hct 42.5 (37-47) % MCV 90.8 (80-100) fL MCH 30.6 (25-34) pg MCHC 33.6 (32-36) g/dL RDW Std Deviation 43.7 (36.4-46.3) fL RDW Coeff of Joanie 13.4 (11.5-14.5) % Plt Count 161 (130-400) K/uL MPV 10.1 (7.4-10.4) fL Immature Gran % (Auto) 0.2 % Neut % (Auto) 55.7 % Lymph % (Auto) 35.2 % [place] % (Auto) 6.9 % Eos % (Auto) 1.6 % Baso % (Auto) 0.4 % Immature Gran # (Auto) 0.01 (0.00-0.02) K/uL Neut # (Auto) 2.50 (1.4-6.5) K/uL Lymph # (Auto) 1.58 (1.2-3.4) K/uL [place] # (Auto) 0.31 (0.11-0.59) K/uL Eos # (Auto) 0.07 (0-0.5) K/uL Baso # (Auto) 0.02 (0-0.2) K/uL Sodium 140 (136-145) mmol/L Potassium 3.7 (3.5-5.1) mmol/L Chloride 108 H (98-107) mmol/L Carbon Dioxide 28 (21-32) mmol/L Anion Gap 4.0 (3-11) BUN 11 (7-18) mg/dl Creatinine 0.69 (0.6-1.2) mg/dl Est Cr Clr Drug Dosing 68.7 ml/min Est GFR ( Amer) 100.8 Est GFR (Non-Af Amer) 87.0 BUN/Creatinine Ratio 15.8 (10-20) Glucose 87 (70-99) mg/dl Calcium 9.0 (8.5-10.1) mg/dl Total Bilirubin 1.4 H (0.2-1) mg/dl AST 22 (15-37) U/L ALT 40 (12-78) U/L Alkaline Phosphatase 93 (45-117) U/L Troponin I < 0.015 (0-0.045) ng/ml Total Protein 8.0 (6.4-8.2) gm/dl Albumin 4.0 (3.4-5.0) gm/dl Globulin 4.0 (2.5-4.0) gm/dl Albumin/Globulin Ratio 1.0 (0.9-2) Lipase 149 (73-393) U/L Imaging Data Radiologist's Impression: Radiology results as stated below per my review and the radiologist's interpretation: XR chest 1V portable CLINICAL HISTORY: Chest Pain COMPARISON STUDY: Chest CT March 07, 2019. FINDINGS: Lung volumes are normal. Lungs are clear. There is no pneumothorax or pleural effusion. Cardiac size is normal. Mediastinal contours are normal. There is no evidence for pulmonary edema. IMPRESSION: No acute cardiopulmonary findings. ACT 112: Negative or not required by law. Electronically signed by: Girish Pimentel M.D. 09/22/2019 1:48 PM ECG Data Attestation: I personally reviewed and interpreted this ECG as follows: Indication: + chest pain Rate (beats per minute): 69 Rhythm: + sinus rhythm ECG [place]: + Normal ECG Findings: + Q waves (Septal) and + Other (T waves flattening in inferior leads; Nonspecific ST changes in lateral and septal elads; ) Comparison ECG Date: from (03/10/2019) Change: no significant change Blood Pressure Blood Pressure Findings: Elevated blood pressure Blood Pressure Disposition: further management by hospitalist UMBERTO Thorne The patient, who is a 73 year old female with a medical history of chest pain, CAD with stents and dyslipidemia, presents to the Emergency Room with complaints of chest pain that started two days ago. IV was established blood work was o btained and showed a mild leukopenia 4.4 thousand. No significant anemia. BMP with LFTs bilirubin and lipase is unremarkable. EKG was not significantly changed from previous. Chest x-ray unremarkable. She has been taking her Plavix. She had 4 stents placed this past summer. She notes that this feeling does feel different but has been getting worse especially this morning when she was up moving around. She does have reproducible anterior chest wall pain but this is different than the pain that she was feeling at the time. Uncertain of the true etiology of this but she is having chest pain with previous stents did feel was prudent to monitor her closely. Discussed with hospitalist and patient was updated bedside. Impression & Plan Chest pain, Hypertension, Arm pain, History of coronary artery stent placement Discharge Plan Visit Data Chief Complaint: Chest Pain Stated Complaint: left sided chest pain ED Provider: Alberto Domínguez Discharge Problem: Chest pain, Hypertension, Arm pain, History of coronary artery stent placement Patient Disposition: Being Evaluated by Hospitalist Forms Stand Alone Forms: Call Back Authorization, [facility] Prescriptions Prescriptions: No Action metoprolol succinate [Toprol XL] 25 mg tablet extended release 24 hr 25 mg PO DAILY Qty: 90 RF: 3 levothyroxine 112 mcg tablet 112 mcg PO DAILY Qty: 30 RF: 5 atorvastatin 80 mg tablet 80 mg PO HS Qty: 30 RF: 5 clopidogrel 75 mg tablet 75 mg PO DAILY Qty: 30 RF: 5 nitroglycerin [Nitrostat] 0.4 mg tablet, sublingual 0.4 mg SL Q5M PRN (Reason: chest pain) Qty: 25 RF: 0 omega-3 fatty acids 1,000 mg capsule 1,000 mg PO DAILY RF: 0 multivitamin with minerals tablet 1 tab PO Q12H RF: 0 cholecalciferol (vitamin D3) 1,000 unit tablet 1,000 units PO DAILY Qty: 90 RF: 0 vitamin B complex [B Complex-Vitamin B12] tablet 1 tab PO DAILY Qty: 90 RF: 3 aspirin 81 mg tablet,delayed release (DR/EC) 81 mg PO QPM RF: 0 Referrals Referrals: Srinivas Monroe DO [Primary Care Provider] - Discharge Problem: Chest pain Qualifiers: Chest pain type: unspecified Qualified Code(s): R07.9 - Chest pain, unspecified Hypertension Qualifiers: Hypertension type: unspecified Qualified Code(s): I10 - Essential (primary) hypertension Arm pain Qualifiers: Laterality: left Qualified Code(s): M79.602 - Pain in left arm The scribe's documentation has been prepared under my direction and personally reviewed by me in its entirety. I confirm that the note above accurately reflects all work, treatment, procedures, and medical decision making performed by me.
[2019-09-22] MEDS ORDERED: ALUMINUM/MAGNESIUM SUSP 30 ML UDC PO PRN (20:05)
[2019-09-22] MEDS ORDERED: ACETAMINOPHEN 325 MG TAB PO PRN (20:05)
[2019-09-22] MEDS ORDERED: MAGNESIUM HYDROXIDE SUSP 30 ML UDC PO PRN (20:05)
[2019-09-22] MEDS ORDERED: POLYETHYLENE (MIRALAX) 17 GM PACK PO PRN (20:05)
[2019-09-22] MEDS ORDERED: NITROGLYCERIN SL 0.4 MG/TAB TAB SL PRN (20:05)
[2019-09-22 20:52] LABS: NT Pro B Type Natriuretic Pept 153 pg/ml (0-900); Thyroid Stimulating Hormone 0.467 uIu/ml (0.300-4.500); Troponin I < 0.015 ng/ml (0-0.045)
[2019-09-22] MEDS ORDERED: ASPIRIN 81 MG ECTAB PO SCH (21:00)
[2019-09-22] MEDS ORDERED: ATORVASTATIN 40 MG TAB PO SCH (21:00)
[2019-09-22] MEDS ORDERED: CEROVITE ADV FORMULA TAB PO SCH (21:00)
[2019-09-22] MEDS ORDERED: METOPROLOL SUCC 25MG EXT REL TAB PO SCH (21:00)
[2019-09-22] MEDS: CLOPIDOGREL BISULFATE 75 MG TAB PO SCH (21:19)
[2019-09-23 02:16] LABS: Basophils # (auto) 0.02 K/uL (0-0.2); Basophils % (auto) 0.4 %; Eosinophils # (auto) 0.11 K/uL (0-0.5); Eosinophils % (auto) 2.4 %; Hematocrit (blood only) 38.3 % (37-47); Immature Granulocytes # (auto) 0.01 K/uL (0.00-0.02); Immature Granulocytes % (auto) 0.2 %; Lymphocytes # (auto) 1.53 K/uL (1.2-3.4); Lymphocytes % (auto) 34.1 %; Mean Corpuscular Hemoglobin 30.9 pg (25-34); Mean Corpuscular Hgb Conc 33.9 g/dL (32-36); Mean Platelet Volume 9.8 fL (7.4-10.4); Monocytes # (auto) 0.32 K/uL (0.11-0.59); Monocytes % (auto) 7.1 %; Neutrophils % (auto) 55.8 %; Platelet Count 144 K/uL (130-400); RDW Coefficient of Variation 13.3 % (11.5-14.5); Red Blood Count 4.21 M/uL (4.2-5.4); White Blood Count 4.49 K/uL (4.8-10.8)
[2019-09-23 02:24] LABS: INR 1.1 (0.9-1.1); Prothrombin Time 11.4 Seconds (9.0-12.0)
[2019-09-23 02:37] LABS: Alanine Aminotransferase 36 U/L (12-78); Albumin Level 3.2 gm/dl (3.4-5.0); Aspartate Aminotransferase 18 U/L (15-37); BUN Creatinine Ratio 24.9 (10-20); Blood Urea Nitrogen 17 mg/dl (7-18); Calcium 8.5 mg/dl (8.5-10.1); Carbon Dioxide 26 mmol/L (21-32); Chloride 111 mmol/L (98-107); Creatinine Clr Calc Pharmacy 70.6 ml/min; Est GFR (African American) 101.8; Est GFR (Non-African American) 87.8; Glucose 86 mg/dl (70-99); Potassium 3.7 mmol/L (3.5-5.1); Sodium 141 mmol/L (136-145)
[2019-09-23 02:42] LABS: Albumin Globulin Ratio 0.9 (0.9-2); Alkaline Phosphatase 83 U/L (45-117); Bilirubin,Total 1.2 mg/dl (0.2-1); Chol HDL Ratio 2; Cholesterol 118 mg/dl (0-200); Globulin 3.5 gm/dl (2.5-4.0); HDL Cholesterol 62 mg/dl; LDL Cholesterol Calculated 40 mg/dl; Total Protein 6.7 gm/dl (6.4-8.2); Triglycerides 81 mg/dl (0-150); Troponin I < 0.015 ng/ml (0-0.045); VLDL Cholesterol 16 mg/dl
[2019-09-23] MEDS ORDERED: LEVOTHYROXINE SODIUM 100 MCG TABLET PO SCH (06:30)
[2019-09-23 06:35] LABS: Estimated Average Glucose 114 mg/dl; Hemoglobin A1C 5.6 % (4.5-5.6)
[2019-09-23] MEDS: CLOPIDOGREL BISULFATE 75 MG TAB PO SCH (08:12)
[2019-09-23] MEDS ORDERED: OMEGA-3 (PURIFIED FISH OIL) 1 GM CAP PO SCH (09:00)
[2019-09-23] MEDS ORDERED: VITAMIN B COMPLEX TAB PO SCH (09:00)
[2019-09-23] MEDS ORDERED: CEROVITE ADV FORMULA TAB PO SCH (09:00)
[2019-09-23] MEDS ORDERED: CHOLECALCIFEROL 1,000 UNITS TAB PO SCH (09:00)
[2019-09-23] MEDS ORDERED: ENOXAPARIN INJ 40 MG/0.4 ML SYR SQ SCH (09:00)
[2019-09-23] MEDS ORDERED: METOPROLOL SUCC 25MG EXT REL TAB PO SCH (09:00)
[2019-09-23] MEDS ORDERED: KETOROLAC TROMETHAMINE 15 MG/ML VIAL IV ONE (12:05)
--- NOTE | 2019-09-23 13:31 | Cardiology Consultation ---
Date of Consultation September 23, 2019 Assessment & Plan (1) Chest pain: The patient's description of chest discomfort is not cardiac in origin. Palpation of her left pectoralis muscle completely duplicates her presenting complaints. Furthermore, her troponin I levels are undetectable and there are no acute EKG changes. No further cardiac testing is indicated at this time. Could undertake a trial of intravenous Toradol for her musculoskeletal complaints. (2) CAD (coronary artery disease), [place] coronary artery: The patient had 4 drug-eluting stents placed back in February 2019 as described above. (3) Hypertension: Adequate control on current medical regimen. (4) Dyslipidemia: Continue atorvastatin. History of Present Illness Attending Physician: Srinivas Barrera MD History of Present Illness Mrs. Beth is a 73-year-old female admitted yesterday with a chest pain syndrome. Discussed this was order to assist in her cardiac management. Of note, the patient [facility] The patient was in her usual state of health until Sunday when she began to develop soreness and tenderness across her left upper chest. There are no other associated symptoms such as shortness of breath, nausea, vomiting, or radiation of the discomfort. She was able to intensify her discomfort with palpation in the described area. The patient explains that her symptoms were present for most of the day, but she was able to sleep that evening. When she awoke Sunday, she again experienced her symptoms but felt that they waxed and waned throughout the day. Of note, the patient was vigorous on Sunday and Sunday putting away her [place] decorations. She presented to her primary care physician on Sunday who immediately suggested she proceed to the emergency room for further care. The patient's cardiac history began back in February 2019 when she presented with an acute coronary syndrome. Cardiac catheterization revealed triple-vessel disease and she was transferred to [facility] for further care. She had 4 OMI placed at that time. This included a stent in the proximal LAD (3 x 16 Synergy), mid LCx (2.25 x 12), mid RCA (3 x 16), and distal RCA (2.5 x 16). She has done well from a cardiac perspective since that time. She is able to carry on activities of daily life without exertional chest pain or limiting dyspnea. She further denies syncope, presyncope, PND, orthopnea, palpitations, lower extremity edema, and claudication. Currently, patient is resting comfortably in the bedside chair without complaints. She continues to note tenderness to palpation across her left anterior chest. Past medical and surgical history 1. Coronary artery disease-see above 2. Hypertension 3. Moderate LVH 4. Hypercholesterolemia 5. GERD 6. Hypothyroidism 7. Factor 5 Leiden mutation 8. Lumbar disc disease 9. DJD 10. 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 Had an [place] in her 60s Father at 76 from non-Hodgkin's lymphoma. Did have a mitral valve replacement. A son at 45 from an [place] Review of systems A 10 point review of systems was undertaken and negative except for that described above. Allergies Allergy/AdvReac Type Severity Reaction Status Date / Time hydromorphone [From Dilaudid] Allergy Severe SWELLING Verified 09/22/19 14:00 OF FEET amoxicillin [From Amoxil] Allergy Unknown Verified 09/22/19 14:00 oxycodone [From Percocet] Allergy Unknown Verified 09/22/19 14:00 Home Medications Home Medications Medication Instructions Recorded Confirmed Type cholecalciferol (vitamin D3) 25 1,000 units PO DAILY #90 tab 03/05/19 09/22/19 Rx mcg (1,000 unit) tablet vitamin B complex 1 tab PO DAILY #90 tab 03/05/19 09/22/19 Rx aspirin 81 mg PO QPM 03/07/19 09/22/19 History metoprolol succinate 25 mg 25 mg PO DAILY #90 tab 03/15/19 09/22/19 Rx tablet,extended release 24 hr clopidogrel 75 mg tablet 75 mg PO DAILY #30 tab 03/17/19 09/22/19 Rx nitroglycerin 0.4 mg sublingual 0.4 mg SL Q5M PRN #25 tab 03/17/19 09/22/19 Rx tablet multivitamin with minerals 1 tab PO Q12H tab 05/13/19 09/22/19 History omega-3 fatty acids 1,000 mg 1,000 mg PO DAILY 05/13/19 09/22/19 History capsule levothyroxine 112 mcg tablet 112 mcg PO DAILY #30 tab 06/04/19 09/22/19 Rx atorvastatin 80 mg tablet 80 mg PO HS #30 tab 07/07/19 09/22/19 Rx Patient History Medical History Abnormal ECG (Chronic) Arthritis (Chronic) Factor V deficiency (Chronic) Hypothyroidism (Chronic) Left shoulder pain (Chronic) Lumbar disc disease (Chronic) Medicare annual wellness visit, initial (Chronic) PVC (premature ventricular contraction) (Chronic) Surgical History H/O shoulder surgery History of coronary artery stent placement History of dental surgery Family History Son Myocardial infarction Hypertension Mother Myocardial infarction Cardiac disorder Father Non-Hodgkin lymphoma Kidney stones Grandmother Ovarian cancer Social History Preferred Language: Kazakh Communication Ability: Effective Worsted Winder Required: No Beliefs That Will Affect Care: None marital status: Current Living Situation: Spouse current occupational status: retired 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 HEENT exam is negative. Neck is supple with full carotid upstrokes. There are no carotid bruits. Jugular venous pressure is flat at 90. There is no thyromegaly. Cardiovascular exam reveals a regular rhythm with a normal S1 and S2. No S3, S4, or murmurs are noted. Chest reveals tenderness to palpation across the left pectoralis muscle. This duplicates her presenting symptoms precisely. Lungs are clear without rales, rhonchi, or wheezes. Abdomen is soft and nontender without bruits. Extremities reveal intact radial artery and posterior tibial pulses bilaterally. There is no peripheral edema. Results & Data Vital Signs (Past 12 Hours) Vital Signs Temp Pulse Pulse Resp BP BP Pulse Ox 09/23/19 12:12 37.1 C 84 20 157/87 H 96 09/23/19 08:03 36.5 C 75 18 147/85 H 97 09/23/19 04:12 36.9 C 62 17 118/77 95 Laboratory Results CBC notes hemoglobin 13.0, hematocrit 38.3, white count 4.49, platelet count [id number]. Electrolytes note a sodium of 141, potassium 3.7, chloride 111, bicarb 26, BUN 17, creatinine 0.67, glucose of 86. Three troponin high levels are less than 0.015. TSH is normal at 0.467. Diagnostic Findings EKG notes normal sinus rhythm and nonspecific ST and T-wave abnormality. Chest x-ray shows no acute disease. Echocardiogram notes normal left ventricular systolic function without wall motion abnormalities. There is moderate LVH and mild mitral regurgitation. PG Care Time/CCT Total # of Minutes Spent Total Time Spent with Patient: Total time spent is greater than 50% in coordination of care (as documented) at patient's floor/unit and/or counseling patient: (1) Chest pain Chest pain type: unspecified Qualified Code(s): R07.9 - Chest pain, unspecified (2) Hypertension Hypertension type: unspecified Qualified Code(s): I10 - Essential (primary) hypertension
--- NOTE | 2019-09-23 14:03 | Discharge Summary ---
Date of Service September 23, 2019 Admission HPI Per Admitting Provider Patient is a 73 years old female with past medical history of hypertension, hypothyroidism, arthritis, left shoulder pain, exertional angina, dyslipidemia, coronary artery disease with 4 stents placement, and NSTEMI, who presents to the emergency room with a complaint of chest pain that started 2 days ago. Patient reports that pain is located in the left chest and radiated to her left shoulder while she was cooking. Patient confirms that the episodes were occurring during the day but each episode will last more than 5 minutes. Patient had similar pain this morning around 8:30 AM and started to be concerned what brought prompted her to present to the emergency room. Patient reports that she felt better after taking aspirin yesterday evening. Patient also reports that she is on blood thinners and she never misses the dose. EKG is reviewed and showed patient in normal sinus rhythm. She has nonspecific ST and T wave abnormalities. QRS axis is shifted right. Patient had nonspecific T wave abnormalities in the anterior and lateral leads. Labs are reviewed: WBC is 4.49, hemoglobin 14.3, hematocrit 42.5, platelets 161, sodium 140, potassium 3.7, chloride 108, BUN 11, creatinine 0.69, GFR 87, hemoglobin A1c pending total bilirubin 1.4, AST 22, ALT 40, troponin -0 0.0152. BNP 153, TSH 0.467. Chest x-rays shows no acute cardiopulmonary findings. No pleural effusion or pneumothorax. No evidence of pulmonary edema. Decision was made to admit patient to PCU on telemetry for observation to rule out acute coronary syndrome. Principal Diagnosis chest pain Discharge Exam Constitutional WD/WN, vitals as above Respiratory normal respiratory effort, lungs clear to auscultation Cardiovascular RRR, no murmur, no edema Gastrointestinal (Abdomen) Inspection/Auscultation: abdomen normal to inspection and normal bowel sounds; abdomen not distended Percussion/Palpation: abdomen soft; abdomen nontender Musculoskeletal no cyanosis or clubbing, extremities motor strength 5/5 Skin no rashes, warm and dry Neurologic moves all extremities and awake Psychiatric A+Ox3, euthymic affect Discharge Data Allergies Allergy/AdvReac Type Severity Reaction Status Date / Time hydromorphone [From Dilaudid] Allergy Severe SWELLING Verified 09/22/19 14:00 OF FEET amoxicillin [From Amoxil] Allergy Unknown Verified 01/06/20 14:00 oxycodone [From Percocet] Allergy Unknown Verified 09/22/19 14:00 Consultations 09/22/19 15:20 ED Decision to Admit Stat 09/23/19 09:54 Consult Cardiology Routine Hospital Course (1) Chest pain: Chest pain likely musculoskeletal No events on monitor Troponin x3 wnl Echo without WMA, EF 60% Cardiology consulted - no need for further workup (2) Hypertension: Continue home medicine aspirin 81 mg p.o. every afternoon, clopidogrel 75 mg p.o. daily. Metoprolol succinate 25 mg p.o. daily [place]-3 fatty acids 1000 mg p.o. daily. (3) CAD (coronary artery disease), [place] coronary artery: Continue aspirin 81 mg p.o. every afternoon, Atorvastatin 80 mg p.o. nightly, Metoprolol succinate 25 mg p.o. daily, Continue omega-3 fatty acids 1000 mg p.o. daily. Continue vitamin B complex p.o. daily. (4) Dyslipidemia: Lipid panel wnl Continue atorvastatin 80 mg p.o. nightly. (5) Elevated bilirubin: appears to be chronically elevated as far back as last year 1.4 on admission, 1.2 on recheck No abdominal pain, nausea or vomiting Follow up with pcp Total Time Total Time Spent Total Time Spent (In Minutes): greater than 30 minutes Discharge Plan Discharge Items Patient Disposition: Home - Self-Care Reason For Visit: CHEST PAIN Discharge Diagnosis: Chest pain Activity: Resume your previous activity Non-emergency contact: Primary Care Provider Call non-emergency contact if: your pain is worsening Follow-up/Referrals: Srinivas Monroe DO [Primary Care Provider] - Diet: Heart Healthy Addtl Attending Provider Instructions: (1) Chest pain: Your chest pain appears to be musculoskeletal in nature. Your cardiac markers remained normal. There was no new findings on your echocardiogram to indicate injury to the heart muscle. Cardiology did not feel that you needed further workup. Your lipid panel was within normal limits For pain you can take Tylenol 1 gram (1000 mg) every 8 hours. (2) Elevated biliruben Appears to be chronically elevated Call your doctor right away if you develop right upper quadrant abdominal pain Otherwise you can follow up on this with your pcp at your next appointment Pending Studies at Discharge: No Stand-Alone Forms: Call Back Authorization, [facility], Smoking Cessation Medications and DC Order Prescriptions: Continued metoprolol succinate [Toprol XL] 25 mg tablet extended release 24 hr 25 mg PO DAILY Qty: 90 RF: 3 levothyroxine 112 mcg tablet 112 mcg PO DAILY Qty: 30 RF: 5 atorvastatin 80 mg tablet 80 mg PO HS Qty: 30 RF: 5 clopidogrel 75 mg tablet 75 mg PO DAILY Qty: 30 RF: 5 nitroglycerin [Nitrostat] 0.4 mg tablet, sublingual 0.4 mg SL Q5M PRN (Reason: chest pain) Qty: 25 RF: 0 omega-3 fatty acids 1,000 mg capsule 1,000 mg PO DAILY RF: 0 multivitamin with minerals tablet 1 tab PO Q12H RF: 0 cholecalciferol (vitamin D3) 1,000 unit tablet 1,000 units PO DAILY Qty: 90 RF: 0 vitamin B complex [B Complex-Vitamin B12] tablet 1 tab PO DAILY Qty: 90 RF: 3 aspirin 81 mg tablet,delayed release (DR/EC) 81 mg PO QPM RF: 0 Discharge Orders: Discharge Order (Routine); Ordered 09/23/19 Ordered By: Annie Jefferson Admission Data Admit Date/Time: 09/22/19 18:41 Attending Provider: Srinivas Barrear Admit Provider: James Fontenot Primary Care Provider: Srinivas Monroe Other Providers: Srinivas Barrera ; Doc De La O
== END 2019-09-23 15:11 | disposition home or self-care (01) ==
LOC: ED 12:53 → 2S 12:53 → SUATTDRO 18:41 → 2S 19:36